=== PATIENT | male | born 1990 | race Two or more races ===

== ENCOUNTER 2018-06-13 02:07 | Emergency (ER) | payer SELFPAY ==
--- NOTE | 2018-06-13 02:25 | EDM.PDOCBH ---
ED HPI GENERAL MEDICAL PROBLEM - General Chief Complaint: Behavioral/Psych Stated Complaint: MEDICAL VIA [facility] Time Seen by Provider: 06/13/18 02:20 Source of Information: Reports: EMS History Limitations: Reports: Other (no history, patient non-verbal) - History of Present Illness INITIAL COMMENTS - FREE TEXT/NARRATIVE: 27 yo male sent in to the ER by police after they picked him up for unknown reasons and started banging is face/head on the back cage of the squad car. EMS transported for the police who did not accompany him. Apparently when he is medically stable he is free to leave as no charges were filed. Has a psych history and lives in the [facility]. Onset: Today Onset Date: 06/13/18 (Or late 06/12) Duration: Other (unknown) Location: Reports: Generalized Severity: Severe (unresponsive here in the ER with stable vitals) Improves with: Reports: None Worsens with: Reports: None Context: Reports: Other (unknown) Associated Symptoms: Reports: Other (decreased LOC, earlier was combative) Treatments SENIOR LABEL SPECIALIST: Reports: Other (see below) (none) - Related Data Allergies Allergy/AdvReac Type Severity Reaction Status Date / Time Unable to Assess Allergy Unverified 06/13/18 04:50 Home Meds: Home Meds . [Unable to Verify Home Med List] 06/13/18 [History] ED ROS GENERAL - Review of Systems Review Of Systems: Unable To Obtain ED EXAM, BEHAVIORAL HEALTH - Physical Exam Exam: See Below Exam Limited By: Other (patient non-verbal) General Appearance: No Apparent Distress, Obtunded Eye Exam: Bilateral Eye: Other (pupils constricted) Ears: Normal External Exam, Normal Canal Nose: Normal Inspection, Normal Mucosa, No Blood Throat/Mouth: Normal Lips, No Airway Compromise Head: Facial Swelling (L eyebrow area. Some superficial facial abrasions. ) Neck: Normal Inspection Respiratory/Chest: No Respiratory Distress, Lungs Clear, Normal Breath Sounds, No Accessory Muscle Use Cardiovascular: Regular Rate, Rhythm, No Edema GI/Abdominal: Normal Bowel Sounds, Soft, Non-Tender, Other (striae) Extremities: Normal Inspection, Normal Range of Motion, Non-Tender, No Pedal Edema Neurological: Slow Response to Commands, Withdraws to Pain Psychiatric: Non-Communicative Skin Exam: Warm, Dry, Intact, Normal color, No rash, Other (many striae) COURSE, BEHAVIORAL HEALTH COMP - Course Vital Signs: Last Vital Signs Temp 36.9 C 06/13/18 02:44 Pulse 95 06/13/18 02:44 Resp 15 06/13/18 02:44 BP 102/56 L 06/13/18 02:44 Pulse Ox 93 L 06/13/18 02:44 Orders, Labs, Meds: Laboratory Tests 06/13/18 06/13/18 Range/Units 02:10 02:10 Urine Opiates Screen Negative (NEGATIVE) Ur Oxycodone Screen Negative (NEGATIVE) Urine Methadone Screen Negative (NEGATIVE) Ur Propoxyphene Screen Negative (NEGATIVE) Ur Barbiturates Screen Negative (NEGATIVE) Ur Tricyclics Screen Negative (NEGATIVE) Ur Phencyclidine Scrn Negative (NEGATIVE) Ur Amphetamine Screen Negative (NEGATIVE) U Methamphetamines Scrn Negative (NEGATIVE) Urine MDMA Screen Negative (NEGATIVE) U Benzodiazepines Scrn Negative (NEGATIVE) U Cocaine Metab Screen Negative (NEGATIVE) U Marijuana (THC) Screen Negative (NEGATIVE) Ethyl Alcohol 270 mg/dL Departure - Departure Time of Disposition: 06:20 Disposition: Home, Self-Care 01 Condition: Good Clinical Impression: Alcohol intoxication Qualifiers: Complication of substance-induced condition: with unspecified complication Qualified Code(s): F10.929 - Alcohol use, unspecified with intoxication, unspecified - Discharge Information *PRESCRIPTION DRUG MONITORING PROGRAM REVIEWED*: Not Applicable *COPY OF PRESCRIPTION DRUG MONITORING REPORT IN PATIENT ELHAM: Not Applicable Instructions: Alcohol Intoxication, [id number] Referrals: PCP,None [Primary Care Provider] - Forms: ED Department Discharge Additional Instructions: No driving this morning. Avoid drinking so much in the future. F/U with your doctor as needed.
== END 2018-06-13 06:36 | disposition home or self-care (01) ==
LOC: JP.ED 02:07
DX: F10.129 Alcohol abuse with intoxication, unspecified (principal); Y90.8 Blood alcohol level of 240 mg/100 ml or more
CPT/HCPCS: 36415; 80305; 99282; 99284; G0480

== ENCOUNTER 2020-04-02 19:38 | Emergency (ER) | payer SELFPAY ==
[2020-04-02] MEDS ORDERED: Ibuprofen 600 MG Tab PO ONE (20:26)
--- NOTE | 2020-04-02 20:31 | EDM.PDOC ---
ED HPI GENERAL MEDICAL PROBLEM - General Chief Complaint: Lower Extremity Injury/Pain Stated Complaint: fell hurt right foot Time Seen by Provider: 04/02/20 20:19 Source of Information: Reports: Patient, Significant Other History Limitations: Reports: No Limitations - History of Present Illness Onset Date: 03/30/20 Duration: Getting Worse Location: Reports: Lower Extremity, Right Quality: Reports: Sharp Improves with: Reports: Medication (tylenol) Worsens with: Reports: Movement Context: Reports: Trauma Associated Symptoms: Reports: No Other Symptoms Treatments DIE REAMER: Reports: Acetaminophen Right Foot Pain Score (Numeric/FACES): 10 - Related Data Allergies Allergy/AdvReac Type Severity Reaction Status Date / Time No Known Allergies Allergy Verified 04/02/20 20:05 Home Meds: Home Meds NK [No Known Home Meds] 04/02/20 [History] Past Medical History Gastrointestinal History: Reports: GERD Musculoskeletal History: Reports: Fracture Psychiatric History: Reports: Addiction - Past Surgical History Musculoskeletal Surgical History: Reports: Other (See Below) Other Musculoskeletal Surgeries/Procedures:: bunion removed, surgery on r foot Social & Family History - Tobacco Use Smoking Status *Q: Current Every Day Smoker Years of Tobacco use: 15 Packs/Tins Daily: 0.3 - Recreational Drug Use Recreational Drug Use: No Review of Systems - Review of Systems Review Of Systems: See Below Constitutional: Reports: No Symptoms Eyes: Reports: No Symptoms Ears: Reports: No Symptoms Mouth/Throat: Reports: No Symptoms Respiratory: Reports: No Symptoms Cardiovascular: Reports: No Symptoms Genitourinary: Reports: No Symptoms Musculoskeletal: Reports: Leg Pain, Foot Pain Skin: Reports: No Symptoms Neurological: Reports: Numbness, Other (Medial side of right foot, but this preexisted the injury. ) ED EXAM, GENERAL - Physical Exam Exam: See Below Exam Limited By: No Limitations General Appearance: Alert, Moderate Distress Respiratory/Chest: No Respiratory Distress Cardiovascular: Normal Peripheral Pulses Back Exam: Normal Inspection Extremities: Redness (Swelling of right foot. There is a well-healed linear scar at the base of the first first metatarsal from bunion surgery. metatarsal from bunion surgery. Patient has extreme pain on palpation of the entire dorsum ofpatient has extreme pain on palpation of the entire dorsum of his right foot ohis right foot. Also pain on palpation of his right proximal . Also pain on palpation of his right proximal fibula fibulaof right foot. There is a well-healed linear scar at the base of the) Course - Vital Signs Last Recorded V/S: Last Vital Signs Temp 36.1 C 04/02/20 20:09 Pulse 96 04/02/20 20:09 Resp 16 04/02/20 20:09 BP 160/103 H 04/02/20 20:09 Pulse Ox 94 L 04/02/20 20:09 - Orders/Labs/Meds Orders: Active Orders 24 hr Category Date Time Status Foot Comp Min 3V Rt [CR] Stat Exams 04/02/20 20:25 Taken Tibia Fibula Rt [CR] Stat Exams 04/02/20 20:25 Taken Meds: Medications Discontinued Medications Generic Name Dose Route Start Last Admin Trade Name Jovita PRN Reason Stop Dose Admin Ibuprofen 600 mg 04/02/20 20:26 04/02/20 20:32 Motrin PO 04/02/20 20:27 600 mg ONETIME ONE Administration Oxycodone/Acetaminophen 1 tab 04/02/20 20:58 04/02/20 21:06 Percocet 325-5 Mg PO 04/02/20 20:59 1 tab ONETIME ONE Administration Departure - Departure Time of Disposition: 21:11 Disposition: Home, Self-Care 01 Clinical Impression: Metatarsal bone fracture - Discharge Information Referrals: PCP,None [Primary Care Provider] - Forms: ED Department Discharge Additional Instructions: Keep R foot elevated and iced as much as possible. See enrichment teacher FELICIA. Sent home with Percocet #6. Sepsis Event Note (ED) - Evaluation Sepsis Screening Result: No Definite Risk - Focused Exam Vital Signs: Vital Signs Temp Pulse Resp BP Pulse Ox 04/02/20 20:09 36.1 C 96 16 160/103 H 94 L 04/02/20 20:02 36.1 C 96 16 160/103 H 94 L - My Orders Last 24 Hours: My Active Orders 04/02/20 20:25 Foot Comp Min 3V Rt [CR] Stat Tibia Fibula Rt [CR] Stat - Assessment/Plan Last 24 Hours: My Active Orders 04/02/20 20:25 Foot Comp Min 3V Rt [CR] Stat Tibia Fibula Rt [CR] Stat
[2020-04-02] MEDS ORDERED: Acetaminophen/oxyCODONE 325-5 MG Tab PO ONE (20:58)
--- NOTE | 2020-04-03 09:06 | CR ---
Foot Comp Min 3V Rt, CLINICAL HISTORY: Foot pain, fall FINDINGS: There is a comminuted fracture at the base of the first metatarsal. There is articular surface involvement. Patient has had previous osteotomy at the first proximal phalanx. 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 No soft tissue abnormality is seen. Impression: Negative
== END 2020-04-02 21:28 | disposition home or self-care (01) ==
LOC: JP.ED 19:38
DX: S92.311A Displaced fracture of first metatarsal bone, right foot, initial encounter for closed fracture (principal); F17.210 Nicotine dependence, cigarettes, uncomplicated; W19.XXXA Unspecified fall, initial encounter
CPT/HCPCS: 73590; 73630; 99283; A9270

== ENCOUNTER 2020-05-01 19:16 | Emergency (ER) | payer MEDICAID ==
--- NOTE | 2020-05-01 21:04 | EDM.PDOC ---
ED HPI GENERAL MEDICAL PROBLEM - General Chief Complaint: Lower Extremity Injury/Pain Stated Complaint: R FOOT INJURY Time Seen by Provider: 05/01/20 19:50 Source of Information: Reports: Patient, Family History Limitations: Reports: Intoxication - History of Present Illness INITIAL COMMENTS - FREE TEXT/NARRATIVE: 29 year old male with foot pain for the past month. He does not have a new injury, he is supposed to be wearing a walking boot but he "forgot it because he is in so much pain". Claims he is taking ibuprofen but it is not enough. He is intoxicated, also already on Suboxone. Onset: Unknown/Unsure Duration: Week(s): (At least 4 to 5 weeks) Associated Symptoms: Denies: Chest Pain, Fever/Chills, Nausea/Vomiting, Shortness of Breath Right Foot Pain Score (Numeric/FACES): 8 - Related Data Allergies Allergy/AdvReac Type Severity Reaction Status Date / Time No Known Allergies Allergy Verified 05/01/20 19:32 Home Meds: Home Meds Buprenorphine HCl/Naloxone HCl [Buprenorp-Nalox 8-2 mg Sl Film] 1 each SL TID 05/01/20 [History] Past Medical History Cardiovascular History: Reports: Heart Murmur Gastrointestinal History: Reports: GERD Musculoskeletal History: Reports: Fracture Psychiatric History: Reports: Addiction - Past Surgical History Musculoskeletal Surgical History: Reports: Other (See Below) Other Musculoskeletal Surgeries/Procedures:: bunion removed, surgery on r foot Social & Family History - Tobacco Use Smoking Status *Q: Current Every Day Smoker Years of Tobacco use: 12 Packs/Tins Daily: 1 - Caffeine Use Caffeine Use: Reports: Energy Drinks - Alcohol Use Days Per Week of Alcohol Use: 7 Number of Drinks Per Day: 16 Total Drinks Per Week: 112 Date of Last Drink: 05/01/20 Time of Last Drink: 15:00 - Recreational Drug Use Recreational Drug Use: No Review of Systems - Review of Systems Review Of Systems: See Below Respiratory: Denies: Shortness of Breath Cardiovascular: Denies: Chest Pain GI/Abdominal: Denies: Abdominal Pain Musculoskeletal: Reports: Other (Foot pain) Skin: Denies: Bruising ED EXAM, GENERAL - Physical Exam Exam: See Below Exam Limited By: No Limitations General Appearance: Alert, No Apparent Distress, Other (Patient is obviously intoxicated) Respiratory/Chest: No Respiratory Distress Extremities: Other (Exam of the right foot reveals no deformity, bruising or swelling. He reacts with pain with palpation of the inner aspect of the right foot) Neurological: Alert, Oriented Psychiatric: Other (Intoxicated) Skin Exam: Warm, Dry Course - Vital Signs Last Recorded V/S: Last Vital Signs Temp 96.9 F 05/01/20 19:43 Pulse 76 05/01/20 19:43 Resp 15 05/01/20 19:43 BP 152/106 H 05/01/20 19:43 Pulse Ox 99 05/01/20 19:43 - Orders/Labs/Meds Orders: Active Orders 24 hr Category Date Time Status Foot Comp Min 3V Rt [CR] Stat Exams 05/01/20 19:56 Taken - Re-Assessments/Exams Free Text/Narrative Re-Assessment/Exam: 05/01/20 23:19 An x-ray was done that shows good callus formation around his fracture, appears to be healing nicely. I explained this to the patient and encouraged him to continue wearing his walking boot. He kept asking for something for pain and when I told him ibuprofen should be enough and I would not be comfortable adding narcotic medications to his already intoxicated state and his Suboxone treatment. He then asked me what I was going to do about his chronic alcohol abuse. I offered him detox but he refused, said he wanted some "Valium". I told him he could go to detox or follow-up with his primary provider and he left without instructions or signing. Departure - Departure Time of Disposition: 20:47 Disposition: Home, Self-Care 01 Clinical Impression: Foot pain, right, Alcohol abuse - Discharge Information Referrals: PCP,None [Primary Care Provider] - Forms: ED Department Discharge Care Plan Goals: Continue current treatment plan, no alcohol. Sepsis Event Note (ED) - Evaluation Sepsis Screening Result: No Definite Risk - Focused Exam Vital Signs: Vital Signs Temp Pulse Resp BP Pulse Ox 05/01/20 19:43 96.9 F 76 15 152/106 H 99 05/01/20 19:40 96.9 F 76 15 152/106 H 99 - My Orders Last 24 Hours: My Active Orders 05/01/20 19:56 Foot Comp Min 3V Rt [CR] Stat - Assessment/Plan Last 24 Hours: My Active Orders 05/01/20 19:56 Foot Comp Min 3V Rt [CR] Stat
--- NOTE | 2020-05-02 08:52 | CR ---
Foot Comp Min 3V Rt CLINICAL HISTORY: Recent fracture, continued pain FINDINGS: There is a fixation staple in the first proximal phalanx. There is deformity of the first metatarsal due to fracture through the base. There is callus formation. There is some deformity of the distal first metatarsal which may be from prior surgery IMPRESSION: Healing comminuted fracture through the base of the first metatarsal with moderate callus formation Deformity of the distal aspect of the first metatarsal is likely postsurgical Previous surgery with the fixation at the first proximal phalanx
== END 2020-05-01 20:47 | disposition home or self-care (01) ==
LOC: JP.ED 19:16
DX: M79.671 Pain in right foot (principal); F10.10 Alcohol abuse, uncomplicated; F11.129 Opioid abuse with intoxication, unspecified; F17.210 Nicotine dependence, cigarettes, uncomplicated
CPT/HCPCS: 73630-26-RT; 73630-RT; 99282; 99284-25

== ENCOUNTER 2020-05-04 02:47 | Emergency (ER) | payer MEDICAID ==
--- NOTE | 2020-05-04 03:02 | EDM.PDOCBH ---
ED HPI GENERAL MEDICAL PROBLEM - General Chief Complaint: Drug or Alcohol Abuse Stated Complaint: MEDICAL VIA [facility] Time Seen by Provider: 05/04/20 02:50 Source of Information: Reports: Patient, EMS, Family History Limitations: Reports: No Limitations - History of Present Illness INITIAL COMMENTS - FREE TEXT/NARRATIVE: 29-year-old French male who is been drinking daily, tonight felt his hands were numb, felt shaky, and just felt awful so called the ambulance to come in. I just saw him here 3 days ago when he was complaining about foot pain and wanted pain medication and Valium for his alcohol. He refused detox at that time, he continued to drink over the last 3 days. No shortness of breath. Some nausea, no vomiting. Just does not feel well. Onset: Unknown/Unsure Associated Symptoms: Reports: Malaise. Denies: Confusion, Chest Pain, Cough, Nausea/Vomiting, Shortness of Breath denies pain Pain Score (Numeric/FACES): 0 - Related Data Allergies Allergy/AdvReac Type Severity Reaction Status Date / Time No Known Allergies Allergy Verified 05/04/20 02:53 Home Meds: Home Meds Buprenorphine HCl/Naloxone HCl [Buprenorp-Nalox 8-2 mg Sl Film] 1 each SL TID 05/01/20 [History] Past Medical History Cardiovascular History: Reports: Heart Murmur Gastrointestinal History: Reports: GERD Musculoskeletal History: Reports: Fracture Psychiatric History: Reports: Addiction - Past Surgical History Musculoskeletal Surgical History: Reports: Other (See Below) Other Musculoskeletal Surgeries/Procedures:: bunion removed, surgery on r foot Social & Family History - Caffeine Use Caffeine Use: Reports: Energy Drinks ED ROS GENERAL - Review of Systems Review Of Systems: See Below Constitutional: Reports: Malaise. Denies: Fever, Chills HEENT: Reports: No Symptoms Respiratory: Denies: Shortness of Breath Cardiovascular: Denies: Chest Pain GI/Abdominal: Reports: Nausea. Denies: Abdominal Pain, Vomiting Musculoskeletal: Reports: Other (foot pain) Skin: Reports: Pallor, Diaphoresis ED EXAM, BEHAVIORAL HEALTH - Physical Exam Exam: See Below Exam Limited By: No Limitations General Appearance: Alert, No Apparent Distress Eye Exam: Bilateral Eye: Normal Inspection Head: Atraumatic Neck: Supple, Non-Tender Respiratory/Chest: Lungs Clear Cardiovascular: Regular Rate, Rhythm. No: Tachycardia GI/Abdominal: Normal Bowel Sounds, Non-Tender Neurological: Alert, Oriented x 3 Psychiatric: Alert, Normal Affect Skin Exam: Warm, Dry COURSE, BEHAVIORAL HEALTH COMP - Course Vital Signs: Last Vital Signs Temp 99.3 F 05/04/20 03:00 Pulse 100 05/04/20 03:00 Resp 17 05/04/20 03:00 BP 134/82 05/04/20 03:00 Pulse Ox 95 05/04/20 03:00 Orders, Labs, Meds: Laboratory Tests 05/04/20 05/04/20 05/04/20 Range/Units 03:03 03:03 03:03 WBC 9.6 (4.5-11.0) K/uL RBC 4.71 (4.30-5.90) M/uL Hgb 13.9 (12.0-15.0) g/dL Hct 40.8 (40.0-54.0) % MCV 87 (80-98) fL MCH 30 (27-31) pg MCHC 34 (32-36) % Plt Count 252 (150-400) K/uL Neut % (Auto) 75 H (36-66) % Lymph % (Auto) 20 L (24-44) % [place] % (Auto) 4 (2-6) % Eos % (Auto) 0 L (2-4) % Baso % (Auto) 1 (0-1) % Sodium 137 L (140-148) mmol/L Potassium 3.2 L (3.6-5.2) mmol/L Chloride 98 L (100-108) mmol/L Carbon Dioxide 22 (21-32) mmol/L Anion Gap 20.2 H (5.0-14.0) mmol/L BUN 11 (7-18) mg/dL Creatinine 1.0 (0.8-1.3) mg/dL Est Cr Clr Drug Dosing 108.01 mL/min Estimated GFR (MDRD) > 60 (>60) Glucose 104 (74-106) mg/dL Calcium 7.9 L (8.5-10.1) mg/dL Total Bilirubin 0.8 (0.2-1.0) mg/dL AST 63 H (15-37) U/L ALT 48 (12-78) U/L Alkaline Phosphatase 81 (46-116) U/L Total Protein 7.1 (6.4-8.2) g/dL Albumin 3.8 (3.4-5.0) g/dL Globulin 3.3 (2.3-3.5) g/dL Albumin/Globulin Ratio 1.2 (1.2-2.2) Lipase 290 (73-393) U/L Urine Opiates Screen (NEGATIVE) Ur Oxycodone Screen (NEGATIVE) Urine Methadone Screen (NEGATIVE) Ur Propoxyphene Screen (NEGATIVE) Ur Barbiturates Screen (NEGATIVE) Ur Tricyclics Screen (NEGATIVE) Ur Phencyclidine Scrn (NEGATIVE) Ur Amphetamine Screen (NEGATIVE) U Methamphetamines Scrn (NEGATIVE) Urine MDMA Screen (NEGATIVE) U Benzodiazepines Scrn (NEGATIVE) U Cocaine Metab Screen (NEGATIVE) U Marijuana (THC) Screen (NEGATIVE) Ethyl Alcohol 138 mg/dL 05/04/20 Range/Units 03:14 WBC (4.5-11.0) K/uL RBC (4.30-5.90) M/uL Hgb (12.0-15.0) g/dL Hct (40.0-54.0) % MCV (80-98) fL MCH (27-31) pg MCHC (32-36) % Plt Count (150-400) K/uL Neut % (Auto) (36-66) % Lymph % (Auto) (24-44) % [place] % (Auto) (2-6) % Eos % (Auto) (2-4) % Baso % (Auto) (0-1) % Sodium (140-148) mmol/L Potassium (3.6-5.2) mmol/L Chloride (100-108) mmol/L Carbon Dioxide (21-32) mmol/L Anion Gap (5.0-14.0) mmol/L BUN (7-18) mg/dL Creatinine (0.8-1.3) mg/dL Est Cr Clr Drug Dosing mL/min Estimated GFR (MDRD) (>60) Glucose (74-106) mg/dL Calcium (8.5-10.1) mg/dL Total Bilirubin (0.2-1.0) mg/dL AST (15-37) U/L ALT (12-78) U/L Alkaline Phosphatase (46-116) U/L Total Protein (6.4-8.2) g/dL Albumin (3.4-5.0) g/dL Globulin (2.3-3.5) g/dL Albumin/Globulin Ratio (1.2-2.2) Lipase (73-393) U/L Urine Opiates Screen Negative (NEGATIVE) Ur Oxycodone Screen Negative (NEGATIVE) Urine Methadone Screen Negative (NEGATIVE) Ur Propoxyphene Screen Negative (NEGATIVE) Ur Barbiturates Screen Negative (NEGATIVE) Ur Tricyclics Screen Negative (NEGATIVE) Ur Phencyclidine Scrn Negative (NEGATIVE) Ur Amphetamine Screen Negative (NEGATIVE) U Methamphetamines Scrn Negative (NEGATIVE) Urine MDMA Screen Negative (NEGATIVE) U Benzodiazepines Scrn Negative (NEGATIVE) U Cocaine Metab Screen Negative (NEGATIVE) U Marijuana (THC) Screen Negative (NEGATIVE) Ethyl Alcohol mg/dL Medications Discontinued Medications Generic Name Dose Route Start Last Admin Trade Name Freq PRN Reason Stop Dose Admin Al Hydroxide/Mg Hydroxide 30 ml 05/04/20 03:20 05/04/20 03:23 Mag-Al Plus PO 05/04/20 03:21 30 ml ONETIME ONE Administration Re-Assessment/Re-Exam: labs reassuring, ETOH .128. Urine screen neg, patient admits not taking suboxone the last two weeks. Refused detox. Departure - Departure Time of Disposition: 03:33 Disposition: Home, Self-Care 01 Clinical Impression: Alcohol abuse - Discharge Information Instructions: Alcohol Intoxication, [id number] Referrals: PCP,None [Primary Care Provider] - Forms: ED Department Discharge Care Plan Goals: It is strongly recommended that you stop using alcohol and consider inpatient detox if necessary. Sepsis Event Note (ED) - Evaluation Sepsis Screening Result: No Definite Risk - Focused Exam Vital Signs: Vital Signs Temp Pulse Resp BP Pulse Ox 05/04/20 03:00 99.3 F 100 17 134/82 95 05/04/20 02:53 99.3 F 100 17 134/82 95
[2020-05-04] MEDS ORDERED: Aluminum Hydroxide/Magnesium Hydroxide/Simethicone Susp 30 ML Cup PO ONE (03:20)
== END 2020-05-04 03:37 | disposition home or self-care (01) ==
LOC: JP.ED 02:47
DX: F10.10 Alcohol abuse, uncomplicated (principal); Y90.6 Blood alcohol level of 120-199 mg/100 ml
CPT/HCPCS: 36415; 80053; 80305; 80307; 83690; 85025; 99284; A9270; 99282

== ENCOUNTER 2020-08-04 19:29 | Emergency (ER) | payer MEDICAID ==
--- NOTE | 2020-08-04 20:54 | EDM.PDOC ---
ED HPI GENERAL MEDICAL PROBLEM - General Chief Complaint: Gastrointestinal Problem Stated Complaint: NUMBNESS, CHEST PAIN Time Seen by Provider: 08/04/20 20:30 Source of Information: Reports: Patient History Limitations: Reports: No Limitations - History of Present Illness INITIAL COMMENTS - FREE TEXT/NARRATIVE: 29-year-old male, acting very anxious complaining of upper abdominal and chest discomfort and numb hands for the past month. No fevers or chills. Claims he has not had any alcohol for the past 2 months but he looks like he is going through withdrawal, mild tachycardia, tremor and namita complexion. I have seen this patient in the past and he is usually not truthful with his history. Onset: Unknown/Unsure Associated Symptoms: Reports: Chest Pain, Loss of Appetite, Malaise, Nausea/Vomiting, Other (Paresthesias of his hands) - Related Data Allergies Allergy/AdvReac Type Severity Reaction Status Date / Time No Known Allergies Allergy Verified 08/04/20 20:36 Home Meds: Home Meds Buprenorphine HCl/Naloxone HCl [Buprenorp-Nalox 8-2 mg Sl Film] 1 each SL TID 05/01/20 [History] Past Medical History Cardiovascular History: Reports: Heart Murmur Gastrointestinal History: Reports: GERD Genitourinary History: Reports: None Musculoskeletal History: Reports: Fracture Psychiatric History: Reports: Addiction Other Psychiatric History: ETOH and Pain medication - Past Surgical History Musculoskeletal Surgical History: Reports: Other (See Below) Other Musculoskeletal Surgeries/Procedures:: bunion removed, surgery on r foot Social & Family History - Family History Family Medical History: No Pertinent Family History - Tobacco Use Tobacco Use Status *Q: Current Every Day Tobacco User Years of Tobacco use: 15 Packs/Tins Daily: 0.5 - Caffeine Use Caffeine Use: Reports: Soda Other Caffeine Use: drinks redbull last 1 week. - Recreational Drug Use Recreational Drug Use: No Other Recreational Drug Type: on suboxone clinic ED ROS GENERAL - Review of Systems Review Of Systems: See Below Constitutional: Reports: Malaise. Denies: Fever, Chills Respiratory: Denies: Shortness of Breath Cardiovascular: Reports: Chest Pain GI/Abdominal: Reports: Abdominal Pain, Nausea Skin: Denies: Cyanosis, Bruising Neurological: Reports: Paresthesia. Denies: Headache Psychiatric: Reports: Anxiety ED EXAM, GI/ABD - Physical Exam Exam: See Below Exam Limited By: No Limitations General Appearance: Alert, Anxious Eyes: Bilateral: Normal Appearance Head: Atraumatic Respiratory/Chest: Lungs Clear Cardiovascular: Regular Rate, Rhythm, Tachycardia GI/Abdominal Exam: Tender (Patient does react with tenderness to palpation across the upper abdomen) Extremities: No: Pedal Edema Neurological: Alert, Oriented Psychiatric: Anxious Skin Exam: Warm, Dry Course - Vital Signs Last Recorded V/S: Last Vital Signs Temp 97.4 F 08/04/20 20:25 Pulse 104 H 08/04/20 20:25 Resp 20 08/04/20 20:25 BP 160/94 H 08/04/20 20:25 Pulse Ox 96 08/04/20 20:25 - Orders/Labs/Meds Labs: Laboratory Tests 08/04/20 08/04/20 08/04/20 Range/Units 21:11 21:11 21:11 WBC 8.5 (4.5-11.0) K/uL RBC 4.56 (4.30-5.90) M/uL Hgb 13.2 (12.0-15.0) g/dL Hct 38.8 L (40.0-54.0) % MCV 85 (80-98) fL MCH 29 (27-31) pg MCHC 34 (32-36) % Plt Count 204 (150-400) K/uL Neut % (Auto) 89 H (36-66) % Lymph % (Auto) 6 L (24-44) % Glasscock % (Auto) 4 (2-6) % Eos % (Auto) 0 L (2-4) % Baso % (Auto) 1 (0-1) % Sodium 140 (140-148) mmol/L Potassium 3.3 L (3.6-5.2) mmol/L Chloride 97 L (100-108) mmol/L Carbon Dioxide 27 (21-32) mmol/L Anion Gap 19.3 H (5.0-14.0) mmol/L BUN 9 (7-18) mg/dL Creatinine 0.8 (0.8-1.3) mg/dL Est Cr Clr Drug Dosing 135.02 mL/min Estimated GFR (MDRD) > 60 (>60) Glucose 106 (74-106) mg/dL Calcium 8.1 L (8.5-10.1) mg/dL Total Bilirubin 1.1 H (0.2-1.0) mg/dL AST 143 H D (15-37) U/L ALT 120 H (12-78) U/L Alkaline Phosphatase 71 (46-116) U/L Total Protein 7.5 (6.4-8.2) g/dL Albumin 4.1 (3.4-5.0) g/dL Globulin 3.4 (2.3-3.5) g/dL Albumin/Globulin Ratio 1.2 (1.2-2.2) Lipase (73-393) U/L Urine Opiates Screen (NEGATIVE) Ur Oxycodone Screen (NEGATIVE) Urine Methadone Screen (NEGATIVE) Ur Propoxyphene Screen (NEGATIVE) Ur Barbiturates Screen (NEGATIVE) Ur Tricyclics Screen (NEGATIVE) Ur Phencyclidine Scrn (NEGATIVE) Ur Amphetamine Screen (NEGATIVE) U Methamphetamines Scrn (NEGATIVE) Urine MDMA Screen (NEGATIVE) U Benzodiazepines Scrn (NEGATIVE) U Cocaine Metab Screen (NEGATIVE) U Marijuana (THC) Screen (NEGATIVE) Ethyl Alcohol 45 mg/dL 08/04/20 08/04/20 Range/Units 21:11 21:41 WBC (4.5-11.0) K/uL RBC (4.30-5.90) M/uL Hgb (12.0-15.0) g/dL Hct (40.0-54.0) % MCV (80-98) fL MCH (27-31) pg MCHC (32-36) % Plt Count (150-400) K/uL Neut % (Auto) (36-66) % Lymph % (Auto) (24-44) % Glasscock % (Auto) (2-6) % Eos % (Auto) (2-4) % Baso % (Auto) (0-1) % Sodium (140-148) mmol/L Potassium (3.6-5.2) mmol/L Chloride (100-108) mmol/L Carbon Dioxide (21-32) mmol/L Anion Gap (5.0-14.0) mmol/L BUN (7-18) mg/dL Creatinine (0.8-1.3) mg/dL Est Cr Clr Drug Dosing mL/min Estimated GFR (MDRD) (>60) Glucose (74-106) mg/dL Calcium (8.5-10.1) mg/dL Total Bilirubin (0.2-1.0) mg/dL AST (15-37) U/L ALT (12-78) U/L Alkaline Phosphatase (46-116) U/L Total Protein (6.4-8.2) g/dL Albumin (3.4-5.0) g/dL Globulin (2.3-3.5) g/dL Albumin/Globulin Ratio (1.2-2.2) Lipase 495 H (73-393) U/L Urine Opiates Screen Negative (NEGATIVE) Ur Oxycodone Screen Negative (NEGATIVE) Urine Methadone Screen Negative (NEGATIVE) Ur Propoxyphene Screen Negative (NEGATIVE) Ur Barbiturates Screen Negative (NEGATIVE) Ur Tricyclics Screen Negative (NEGATIVE) Ur Phencyclidine Scrn Negative (NEGATIVE) Ur Amphetamine Screen Negative (NEGATIVE) U Methamphetamines Scrn Negative (NEGATIVE) Urine MDMA Screen Negative (NEGATIVE) U Benzodiazepines Scrn Negative (NEGATIVE) U Cocaine Metab Screen Negative (NEGATIVE) U Marijuana (THC) Screen Negative (NEGATIVE) Ethyl Alcohol mg/dL Meds: Medications Discontinued Medications Generic Name Dose Route Start Last Admin Trade Name Freq PRN Reason Stop Dose Admin Multivitamins/Minerals 10 ml/ 1,017.2 mls @ 1,000 mls/hr 08/04/20 22:00 Thiamine HCl 100 mg/ Folic IV Acid 1 mg/ Magnesium Sulfate 3 ASDIRECTED PAMELA gm/ Sodium Chloride - Re-Assessments/Exams Free Text/Narrative Re-Assessment/Exam: 08/04/20 23:54 CBC CMP EtOH and lipase were obtained. Liver enzymes returned elevated, and blood alcohol was 0.045. I confronted the patient about this and told him I thought he was withdrawing could use time in the detox center. I also planned on giving him a banana bag, but when nursing went into his room to start the IV he had left AMA. Departure - Departure Time of Disposition: 22:02 Disposition: Against Medical Advice 07 Clinical Impression: Alcoholism - Discharge Information Referrals: PCP,None [Primary Care Provider] - Forms: ED Department Discharge Care Plan Goals: Discussed detox with the patient and ordered a banana bag for fluid replenishment and vitamins. However when the nurse returned to the room to start the IV he got up and left and refused to be seen or treated any further. Sepsis Event Note (ED) - Evaluation Sepsis Screening Result: No Definite Risk - Focused Exam Vital Signs: Vital Signs Temp Pulse Resp BP Pulse Ox 08/04/20 20:25 97.4 F 104 H 20 160/94 H 96
[2020-08-04] MEDS ORDERED: MVI, Adult with Vitamin K 10 ML, Thiamine 100 MG, Folic Acid 1 MG, Magnesium Sulfate 3 ... IV SCH ×5 (22:00)
== END 2020-08-04 21:55 | disposition left against medical advice (07) ==
LOC: JP.ED 19:29
DX: F10.20 Alcohol dependence, uncomplicated (principal); Y90.2 Blood alcohol level of 40-59 mg/100 ml; F17.210 Nicotine dependence, cigarettes, uncomplicated
CPT/HCPCS: 36415; 80053; 80305-QW; 80307; 83690; 85025; 99283; 99284

== ENCOUNTER 2020-10-19 18:17 | Emergency (ER) | payer BC, MEDICAID ==
--- NOTE | 2020-10-19 18:50 | EDM.PDOC ---
ED HPI GENERAL MEDICAL PROBLEM - General Chief Complaint: Respiratory Problem Stated Complaint: PAIN WHILE BREATHING Time Seen by Provider: 10/19/20 18:44 Source of Information: Reports: Patient History Limitations: Reports: No Limitations - History of Present Illness INITIAL COMMENTS - FREE TEXT/NARRATIVE: Izaiah is a 30-year-old male presenting to the ED for evaluation of increasing shortness of breath and chest pain with respiration. Patient symptoms started yesterday morning. He denies any fever, chills, nausea or vomiting, diaphoresis, hemoptysis, neck or arm pain. The patient is a smoker and reports that last couple of days he has smoked more than usual at about a pack per day. He denies having any cough. Denies any headache and loss of taste or smell. - Related Data Allergies Allergy/AdvReac Type Severity Reaction Status Date / Time No Known Allergies Allergy Verified 10/19/20 18:32 Home Meds: Home Meds NK [No Known Home Meds] 10/19/20 [History] Past Medical History Cardiovascular History: Reports: Heart Murmur Gastrointestinal History: Reports: GERD Genitourinary History: Reports: None Musculoskeletal History: Reports: Fracture Psychiatric History: Reports: Addiction Other Psychiatric History: ETOH and Pain medication - Past Surgical History Musculoskeletal Surgical History: Reports: Other (See Below) Other Musculoskeletal Surgeries/Procedures:: bunion removed, surgery on r foot Social & Family History - Family History Family Medical History: No Pertinent Family History - Tobacco Use Tobacco Use Status *Q: Current Every Day Tobacco User Years of Tobacco use: 15 Packs/Tins Daily: 1 - Caffeine Use Caffeine Use: Reports: Soda Other Caffeine Use: drinks redbull last 1 week. ED ROS GENERAL - Review of Systems Review Of Systems: See Below Constitutional: Reports: No Symptoms HEENT: Reports: No Symptoms Respiratory: Reports: Shortness of Breath, Pleuritic Chest Pain Cardiovascular: Reports: Chest Pain Endocrine: Reports: No Symptoms GI/Abdominal: Reports: No Symptoms : Reports: No Symptoms Musculoskeletal: Reports: No Symptoms Skin: Reports: No Symptoms Neurological: Reports: No Symptoms Psychiatric: Reports: No Symptoms Hematologic/Lymphatic: Reports: No Symptoms Immunologic: Reports: No Symptoms ED EXAM, GENERAL - Physical Exam Exam: See Below Exam Limited By: No Limitations General Appearance: Alert, WD/WN, No Apparent Distress Eye Exam: Bilateral Eye: EOMI, PERRL Head: Atraumatic, Normocephalic Neck: Normal Inspection, Supple, Non-Tender Respiratory/Chest: No Respiratory Distress, No Accessory Muscle Use, Chest Non- Tender, Wheezing (Scant inspiratory wheezes) Cardiovascular: Normal Peripheral Pulses, Regular Rate, Rhythm, No Murmur Peripheral Pulses: 2+: Radial (L), Radial (R) GI/Abdominal: Normal Bowel Sounds, Soft, Non-Tender Back Exam: Normal Inspection, Full Range of Motion Extremities: Normal Inspection, Normal Range of Motion Neurological: Alert, Oriented, Normal Cognition, No Motor/Sensory Deficits Psychiatric: Normal Affect, Normal Mood Skin Exam: Warm, Dry Lymphatic: No Adenopathy Course - Vital Signs Last Recorded V/S: Last Vital Signs Temp 37.1 C 10/19/20 18:38 Pulse 61 10/19/20 18:38 Resp 16 10/19/20 18:38 BP 142/60 H 10/19/20 18:38 Pulse Ox 97 10/19/20 18:38 - Orders/Labs/Meds Orders: Active Orders 24 hr Category Date Time Status Chest 2V [CR] Stat Exams 10/19/20 18:44 Taken Labs: Laboratory Tests 10/19/20 10/19/20 Range/Units 18:59 18:59 WBC 3.9 L (4.5-11.0) K/uL RBC 4.61 (4.30-5.90) M/uL Hgb 13.7 (12.0-15.0) g/dL Hct 40.1 (40.0-54.0) % MCV 87 (80-98) fL MCH 30 (27-31) pg MCHC 34 (32-36) % Plt Count 293 (150-400) K/uL Neut % (Auto) 54 (36-66) % Lymph % (Auto) 34 (24-44) % [place]ress % (Auto) 9 H (2-6) % Eos % (Auto) 2 (2-4) % Baso % (Auto) 1 (0-1) % C-Reactive Protein 0.13 (0.0-0.3) mg/dL - Radiology Interpretation Free Text/Narrative:: Chest x-ray 2 view: Normal cardiac silhouette. Normal appearing lungs without infiltrates. No effusions. Normal rib structure. - Re-Assessments/Exams Free Text/Narrative Re-Assessment/Exam: 10/19/20 19:37 I reviewed the patient's x-rays and labs. This appears to be most likely pleurodynia secondary to a viral pleurisy. We will put patient on Toradol 10 mg 4 times daily for the next 5 days to calm down the inflammation. I did encourage patient to quit smoking, however, I do not believe that he will take my advice on this. Indications return to the ED were discussed that he was discharged in satisfactory condition. Departure - Departure Time of Disposition: 19:38 Disposition: Home, Self-Care 01 Clinical Impression: Pleurodynia, viral, Pleurisy, Tobacco abuse - Discharge Information *PRESCRIPTION DRUG MONITORING PROGRAM REVIEWED*: Not Applicable *COPY OF PRESCRIPTION DRUG MONITORING REPORT IN PATIENT [place]: Not Applicable Instructions: Pleurisy, [id number], Steps to Quit Smoking, [id number] Referrals: Celestina Wall MD [Primary Care Provider] - Forms: ED Department Discharge Care Plan Goals: Your pain appears to be arising from inflammation due to a viral infection in the lining around your lungs. This is called pleurisy. I am putting you on Toradol 10 mg 4 times a day for the next 5 days to reduce his inflammation. Make sure to take the medication with some food as not irritate your stomach. Would also highly encourage you to quit smoking to prevent any further damage to your lungs. I definitely would advocate against any vaping as this is associated with severe lung damage and lung transplants. Sepsis Event Note (ED) - Evaluation Sepsis Screening Result: No Definite Risk - Focused Exam Vital Signs: Vital Signs Temp Pulse Resp BP Pulse Ox 10/19/20 18:38 37.1 C 61 16 142/60 H 97 10/19/20 18:29 37.1 C 61 16 142/60 H 97 - Problem List & Annotations (1) Pleurisy SNOMED Code(s): 744009335 Code(s): R09.1 - PLEURISY Status: Acute Priority: Medium Current Visit: Yes (2) Pleurodynia, viral SNOMED Code(s): 85617281 Code(s): B33.0 - EPIDEMIC MYALGIA Status: Acute Priority: Medium Current Visit: Yes (3) Tobacco abuse SNOMED Code(s): 098025899 Code(s): Z72.0 - TOBACCO USE Status: Chronic Priority: Medium Current Visit: Yes - Problem List Review Problem List Initiated/Reviewed/Updated: Yes - My Orders Last 24 Hours: My Active Orders 10/19/20 18:44 Chest 2V [CR] Stat - Assessment/Plan Last 24 Hours: My Active Orders 10/19/20 18:44 Chest 2V [CR] Stat
--- NOTE | 2020-10-22 09:18 | CR ---
CHEST: 2 view CLINICAL HISTORY:Chest pain, dyspnea COMPARISON:None FINDINGS: The heart size, pulmonary vascularity and hilar structures are normal. No infiltrate effusion or pneumothorax is seen. IMPRESSION: No acute cardiopulmonary process.
== END 2020-10-19 19:52 | disposition home or self-care (01) ==
LOC: JP.ED 18:17
DX: R09.1 Pleurisy (principal); F17.200 Nicotine dependence, unspecified, uncomplicated
CPT/HCPCS: 36415; 71046; 71046-26; 85025; 86140; 99283; 99285-25

== ENCOUNTER 2021-03-28 14:28 | Emergency (ER) | payer MEDICAID ==
[2021-03-28] MEDS ORDERED: Sodium Chloride 0.9% 10 ML Syringe FLUSH PRN (15:26)
[2021-03-28] MEDS ORDERED: Ketorolac 30 MG/ML SDV IVPUSH ONE (15:28)
--- NOTE | 2021-03-28 15:29 | EDM.PDOC ---
ED HPI GENERAL MEDICAL PROBLEM - General Chief Complaint: Gastrointestinal Problem Stated Complaint: STOMACH PAIN, STARTED 2 HRS AGO Time Seen by Provider: 03/28/21 15:15 Source of Information: Reports: Patient, RN Notes Reviewed History Limitations: Reports: No Limitations - History of Present Illness INITIAL COMMENTS - FREE TEXT/NARRATIVE: 30-year-old gentleman presents emergency department day complaint of abdominal pain, he states it come on suddenly just a couple hours prior to presentation to the ED he has not taken anything for this pain no nausea vomiting he does have some diarrhea but that has been ongoing for some time used to take Suboxone in the past. He is still passing gas no history of abdominal surgeries Upper Abdomen Pain Score (Numeric/FACES): 8 - Related Data Allergies Allergy/AdvReac Type Severity Reaction Status Date / Time No Known Allergies Allergy Verified 03/28/21 14:42 Home Meds: Home Meds Cyclobenzaprine [Flexeril] 10 mg PO TID PRN 03/28/21 [History] Diphenoxylate HCl/Atropine [Lomotil] 1 tab PO Q6H PRN 03/28/21 [History] Gabapentin [Neurontin] 400 mg PO TID 03/28/21 [History] Past Medical History Cardiovascular History: Reports: Heart Murmur Gastrointestinal History: Reports: GERD Musculoskeletal History: Reports: Fracture Psychiatric History: Reports: Addiction Other Psychiatric History: ETOH and Pain medication Endocrine/Metabolic History: Reports: Obesity/BMI 30+ - Past Surgical History Musculoskeletal Surgical History: Reports: Other (See Below) Other Musculoskeletal Surgeries/Procedures:: bunion removed, surgery on r foot Social & Family History - Family History Family Medical History: No Pertinent Family History - Tobacco Use Tobacco Use Status *Q: Current Every Day Tobacco User Years of Tobacco use: 15 Packs/Tins Daily: 0.3 - Caffeine Use Caffeine Use: Reports: Coffee Other Caffeine Use: drinks redbull last 1 week. - Alcohol Use Date of Last Drink: 03/17/21 - Recreational Drug Use Recreational Drug Use: No ED ROS GENERAL - Review of Systems Review Of Systems: See Below Constitutional: Reports: No Symptoms Respiratory: Reports: No Symptoms Cardiovascular: Reports: No Symptoms GI/Abdominal: Reports: Abdominal Pain, Diarrhea, Flatus. Denies: Nausea, Vomiting : Reports: No Symptoms ED EXAM, GI/ABD - Physical Exam Exam: See Below Exam Limited By: No Limitations General Appearance: Alert, WD/WN, No Apparent Distress Respiratory/Chest: No Respiratory Distress GI/Abdominal Exam: Normal Bowel Sounds, Soft, No Distention, No Abnormal Bruit, No Mass, Tender (Epigastric region) Course - Vital Signs Last Recorded V/S: Last Vital Signs Temp 98.1 F 03/28/21 14:49 Pulse 71 03/28/21 14:49 Resp 16 03/28/21 14:49 BP 155/98 H 03/28/21 14:49 Pulse Ox 96 03/28/21 14:49 - Orders/Labs/Meds Orders: Active Orders 24 hr Category Date Time Status Peripheral IV Care [RC] . DIRECTED Care 03/28/21 15:26 Active DRUG SCREEN, URINE [URCHEM] Urgent Lab 03/28/21 15:26 Ordered UA W/O MICROSCOPIC [URIN] Urgent Lab 03/28/21 15:26 Ordered Lactated Ringers [Ringers, Lactated] 1,000 ml Med 03/28/21 15:30 Active IV ASDIRECTED Sodium Chloride 0.9% [Saline Flush] Med 03/28/21 15:26 Active 10 ml FLUSH ASDIRECTED PRN Peripheral IV Insertion Adult [OM.PC] Urgent Oth 03/28/21 15:26 Ordered Medication Orders Lactated Ringer's (Ringers, Lactated) 1,000 mls @ 999 mls/hr IV ASDIRECTED PAMELA Last Admin: 03/28/21 15:38 Dose: 999 mls/hr Documented by: CRISS Sodium Chloride (Sodium Chloride 0.9% 10 Ml Syringe) 10 ml FLUSH ASDIRECTED PRN PRN Reason: Keep Vein Open Last Admin: 03/28/21 15:38 Dose: 10 ml Documented by: CRISS Labs: Laboratory Tests 03/28/21 03/28/21 03/28/21 Range/Units 15:39 15:39 15:39 WBC 6.2 (4.5-11.0) K/uL RBC 4.65 (4.30-5.90) M/uL Hgb 13.8 (12.0-15.0) g/dL Hct 38.9 L (40.0-54.0) % MCV 84 (80-98) fL MCH 30 (27-31) pg MCHC 36 (32-36) % Plt Count 155 (150-400) K/uL Neut % (Auto) 85.6 H (36-66) % Lymph % (Auto) 9.4 L (24-44) % [place] % (Auto) 3.9 (2-6) % Eos % (Auto) 0.8 L (2-4) % Baso % (Auto) 0.3 (0-1) % Sodium 137 L (140-148) mmol/L Potassium 3.7 (3.6-5.2) mmol/L Chloride 99 L (100-108) mmol/L Carbon Dioxide 24 (21-32) mmol/L Anion Gap 17.7 H (5.0-14.0) mmol/L BUN 7 (7-18) mg/dL Creatinine 0.9 (0.8-1.3) mg/dL Est Cr Clr Drug Dosing 115.06 mL/min Estimated GFR (MDRD) > 60 (>60) Glucose 105 (74-106) mg/dL Lactic Acid 1.1 (0.4-2.0) mmol/L Calcium 7.8 L (8.5-10.1) mg/dL Total Bilirubin 0.8 (0.2-1.0) mg/dL AST 88 H (15-37) U/L ALT 94 H (12-78) U/L Alkaline Phosphatase 69 (46-116) U/L Troponin I < 0.017 (0.000-0.056) ng/mL Total Protein 6.6 (6.4-8.2) g/dL Albumin 3.4 (3.4-5.0) g/dL Globulin 3.2 (2.3-3.5) g/dL Albumin/Globulin Ratio 1.1 L (1.2-2.2) Lipase 937 H (73-393) U/L Meds: Medications Generic Name Dose Route Start Last Admin Trade Name Freq PRN Reason Stop Dose Admin Lactated Ringer's 1,000 mls @ 999 mls/hr 03/28/21 15:30 03/28/21 15:38 Ringers, Lactated IV 999 mls/hr ASDIRECTED PAMELA Administration Sodium Chloride 10 ml 03/28/21 15:26 03/28/21 15:38 Sodium Chloride 0.9% 10 Ml Syringe FLUSH 10 ml ASDIRECTED PRN Administration Keep Vein Open Discontinued Medications Generic Name Dose Route Start Last Admin Trade Name Jovita PRN Reason Stop Dose Admin Sodium Chloride 85 mls @ 3.5 mls/sec 03/28/21 15:45 03/28/21 16:00 Normal Saline IV 03/28/21 15:46 3.5 mls/sec ASDIRECTED PAMELA Administration Iopamidol 148 ml 03/28/21 15:33 03/28/21 16:00 Iopamidol 612 Mg/Ml 500 Ml Multipack Bottle IV 03/28/21 15:34 148 ml ONETIME ONE Administration Ketorolac Tromethamine 30 mg 03/28/21 15:28 03/28/21 15:39 Ketorolac 30 Mg/Ml Sdv IVPUSH 03/28/21 15:29 30 mg ONETIME ONE Administration Sodium Chloride 10 ml 03/28/21 15:33 03/28/21 16:00 Sodium Chloride 0.9% 10 Ml Syringe FLUSH 03/28/21 15:34 10 ml ONETIME ONE Administration Departure - Departure Time of Disposition: 17:52 Disposition: Home, Self-Care 01 Condition: Fair Clinical Impression: Acute pancreatitis Qualifiers: Pancreatitis type: alcohol induced Acute pancreatitis complication: no infection or necrosis Qualified Code(s): K85.20 - Alcohol induced acute pancreatitis without necrosis or infection - Discharge Information Instructions: Acute Pancreatitis, [id number] Referrals: PCP,None [Primary Care Provider] - Forms: ED Department Discharge Additional Instructions: Limit your intake to clear liquids, use Percocet as needed for pain control please return to the emergency department if pain becomes unbearable or worsening of conditions. Sepsis Event Note (ED) - Evaluation Sepsis Screening Result: No Definite Risk - Focused Exam Vital Signs: Vital Signs Temp Pulse Resp BP Pulse Ox 03/28/21 14:49 98.1 F 71 16 155/98 H 96 03/28/21 14:39 98.1 F 71 16 155/98 H 96 - My Orders Last 24 Hours: My Active Orders 03/28/21 15:26 Peripheral IV Care [RC] . DIRECTED DRUG SCREEN, URINE [URCHEM] Urgent UA W/O MICROSCOPIC [URIN] Urgent Sodium Chloride 0.9% [Saline Flush] 10 ml FLUSH ASDIRECTED PRN Peripheral IV Insertion Adult [OM.PC] Urgent 03/28/21 15:30 Lactated Ringers [Ringers, Lactated] 1,000 ml IV ASDIRECTED - Assessment/Plan Last 24 Hours: My Active Orders 03/28/21 15:26 Peripheral IV Care [RC] . DIRECTED DRUG SCREEN, URINE [URCHEM] Urgent UA W/O MICROSCOPIC [URIN] Urgent Sodium Chloride 0.9% [Saline Flush] 10 ml FLUSH ASDIRECTED PRN Peripheral IV Insertion Adult [OM.PC] Urgent 03/28/21 15:30 Lactated Ringers [Ringers, Lactated] 1,000 ml IV ASDIRECTED Plan: Assessment Acuity = acute Site and laterality = acute pancreatitis early onset Etiology = probably related to alcohol Manifestations = abdominal pain Location of injury = Home Lab values = CBC unremarkable AST elevated 88 ALT elevated 94 consistent with elevated liver enzymes troponin was negative lactic acid normal 1.1 lipase elevated 937 consistent with early pancreatitis CT scan describes edema around the pancreas also consistent with acute pancreatitis Plan I did discuss his lab results CT scan results with him offered him admission of which he declined he states he would for to go home and just do bowel rest at home I did provide him cassettes 1 tablet every 6 hours total #12 This note was dictated using [employer] recognition software please call with any questions on syntax or grammar.
[2021-03-28] MEDS ORDERED: Lactated Ringers 1,000 ML IV SCH (15:30)
[2021-03-28] MEDS ORDERED: Iopamidol 612 MG/ML 500 ML Multipack Bottle IV ONE (15:33)
[2021-03-28] MEDS ORDERED: Sodium Chloride 0.9% 10 ML Syringe FLUSH ONE (15:33)
--- NOTE | 2021-03-28 16:48 | CRLCT ---
For Patients: As a result of the Century Cures Act, medical imaging exams and procedure reports are released immediately into your electronic medical record. You may view this report before your referring provider. If you have questions, please contact your health care provider. INDICATION: Epigastric abdomen pain. TECHNIQUE: CT abdomen and pelvis acquired with 148 cc Isovue-300 IV contrast. COMPARISON: None. FINDINGS: Lower chest: Unremarkable. Liver: Diffuse fatty infiltration. No focal lesions. Gallbladder and bile ducts: Unremarkable. No stones or inflammation. No biliary dilatation. Pancreas: There is a moderate amount of edema about the pancreatic head and adjacent duodenum. Remainder of the pancreas and peripancreatic tissues are unremarkable. Spleen: Unremarkable. Normal in size. No masses. Adrenal glands: Unremarkable. No nodules. Kidneys: Unremarkable. No suspicious masses, stones, or hydronephrosis. GI tract: Unremarkable. Normal in caliber. No sign of mass or inflammation. Normal appendix. Vasculature: Unremarkable. Mesenteric arteries are patent. Lymph nodes: No lymphadenopathy. Omentum/Peritoneum/Abdominal Wall: Unremarkable. No sign of mass or infiltration. No free air or significant free fluid. Pelvis: Unremarkable. Bones: Unremarkable for age. IMPRESSION: Moderate amount of edema surrounding the pancreatic head and adjacent duodenum likely representing primary acute pancreatitis with other complications. Remainder of the exam is unremarkable. Dictated by Cb Salomon MD @ 03/28/2021 4:46:50 PM Please note that all CT scans at this facility use dose modulation, iterative reconstruction, and/or weight-based dosing when appropriate to reduce radiation dose to as low as reasonably achievable. Dictated by: Cb Salomon MD @ 03/28/2021 16:46:57 (Electronically Signed)
== END 2021-03-28 18:30 | disposition home or self-care (01) ==
LOC: JP.ED 14:28
DX: K85.20 Alcohol induced acute pancreatitis without necrosis or infection (principal); E66.9 Obesity, unspecified; Z72.0 Tobacco use; Z68.33 Body mass index [BMI] 33.0-33.9, adult
CPT/HCPCS: 36415; 74177; 80053; 83605; 83690; 84484; 85025; 96374; 99284; J1885; J7120; Q9967

== ENCOUNTER 2021-03-28 22:58 | Emergency (ER) | payer MEDICAID ==
[2021-03-28] MEDS ORDERED: Sodium Chloride 0.9% 500 ML IV ONE (23:44)
[2021-03-28] MEDS ORDERED: Ondansetron 4 MG/2 ML SDV IVPUSH ONE (23:44)
[2021-03-28] MEDS ORDERED: Sodium Chloride 0.9% 10 ML Syringe FLUSH PRN (23:44)
[2021-03-28] MEDS ORDERED: Pantoprazole 40 MG Vial IVPUSH ONE (23:44)
[2021-03-28] MEDS ORDERED: Morphine 4 MG/ML Syringe IVPUSH ONE (23:44)
[2021-03-29] MEDS ORDERED: Sodium Chloride 0.9% 500 ML IV ONE (00:36)
--- NOTE | 2021-03-29 00:42 | EDM.PDOC ---
ED HPI GENERAL MEDICAL PROBLEM - General Chief Complaint: Abdominal Pain Stated Complaint: STOMACH PAIN Time Seen by Provider: 03/28/21 23:33 Source of Information: Reports: Patient History Limitations: Reports: No Limitations - History of Present Illness INITIAL COMMENTS - FREE TEXT/NARRATIVE: Patient presents emergency room today secondary to increasing abdominal pain. He was seen in this emergency room earlier today diagnosed with pancreatitis and treated as an outpatient sent home with Percocet by Officer told to return the emergency room should he have increasing pain or discomfort patient denies any nausea vomiting fevers chills or symptoms otherwise he just states that his abdominal pain is increasing in nature to include bloating sensation he states that he has feeling like his abdomen is going to explode. States that pain is an 8 out of 10 sharp stabbing in nature he denies any nausea vomiting fevers or chills or symptoms otherwise PMH--chronic foot pain, obesity Meds--gabapentin, cyclobenzaprine, lomotil, hx suboxone use NKDA Tob--1/2 ppd EtOH--patient denies but previous ER visit is noted for last drinking episode 17 March Drugs--denies Onset: Today - Related Data Allergies Allergy/AdvReac Type Severity Reaction Status Date / Time No Known Allergies Allergy Verified 03/28/21 23:34 Home Meds: Home Meds Cyclobenzaprine [Flexeril] 10 mg PO TID PRN 03/28/21 [History] Diphenoxylate HCl/Atropine [Lomotil] 1 tab PO Q6H PRN 03/28/21 [History] Gabapentin [Neurontin] 400 mg PO TID 03/28/21 [History] Past Medical History Cardiovascular History: Reports: Heart Murmur Gastrointestinal History: Reports: GERD Musculoskeletal History: Reports: Fracture Psychiatric History: Reports: Addiction Other Psychiatric History: ETOH and Pain medication Endocrine/Metabolic History: Reports: Obesity/BMI 30+ - Past Surgical History Musculoskeletal Surgical History: Reports: Other (See Below) Other Musculoskeletal Surgeries/Procedures:: bunion removed, surgery on r foot Social & Family History - Family History Family Medical History: No Pertinent Family History - Tobacco Use Tobacco Use Status *Q: Never Tobacco User - Caffeine Use Caffeine Use: Reports: Coffee Other Caffeine Use: drinks redbull last 1 week. ED ROS GENERAL - Review of Systems Review Of Systems: Comprehensive ROS is negative, except as noted in HPI. Constitutional: Reports: No Symptoms HEENT: Reports: No Symptoms Respiratory: Reports: No Symptoms Cardiovascular: Reports: No Symptoms GI/Abdominal: Reports: Abdominal Pain. Denies: Nausea ED EXAM, GI/ABD - Physical Exam Exam: See Below Exam Limited By: No Limitations General Appearance: Alert, Moderate Distress, Obese Eyes: Bilateral: Normal Appearance, EOMI Ears: Normal External Exam, Hearing Grossly Normal Nose: Normal Inspection Throat/Mouth: Normal Inspection, Normal Voice, No Airway Compromise Head: Atraumatic, Normocephalic Neck: Normal Inspection, Supple, Non-Tender, Full Range of Motion Respiratory/Chest: No Respiratory Distress, Lungs Clear, Normal Breath Sounds, Chest Non-Tender Cardiovascular: Normal Peripheral Pulses, Regular Rate, Rhythm, No Edema, No Murmur GI/Abdominal Exam: Soft, Tender (diffuse--focal mid-abdominal to left side), Abnormal Bowel Sounds (hypoactive). No: Guarding, Rigid, Rebound (Male) Exam: Deferred Rectal (Males) Exam: Deferred Back Exam: Normal Inspection, Full Range of Motion Extremities: Normal Inspection, Normal Range of Motion, No Pedal Edema, Normal Capillary Refill Neurological: Alert, Oriented, Normal Cognition, Normal Gait, No Motor/Sensory Deficits Psychiatric: Normal Affect, Normal Mood Skin Exam: Warm, Dry, Intact, Normal Color Course - Vital Signs Text/Narrative:: Reviewed previous ER visit after patient exam CT abdomen of pelvis was completed noted for diffuse fatty liver pancreatic attic anemia at the head and duodenum consistent with acute pancreatitis patient was discharged with Percocet for pain control. Labs are noted for elevated lipase normal white blood cell count at that visit we will repeat labs provide IV fluids pain medication Protonix antiemetic and plan for discharge if no acute concerns are noted on repeat labs 0044--labs have been reviewed urine drug screen is positive for TCA marijuana and opiatesopiates are the only noted prescribed medication. CBC is fairly unremarkable white blood cell count is stable at 6.1 his neutrophil percent has decreased slightly from 85 to now 80% platelets have also decreased slightly from 1 52-1 46. Sodium and potassium have decreased slightly and a136 now and K3.2. Liver enzymes AST/ALT are essentially the same 88/90 4 repeat now 87/88. Total bili is mildly increased 0.8 earlier today now 1.1. Ambulates at this visit was noted to be elevated at 146 no previous for comparison. Lipase has increased slightly 937 to now 1204. We will continue with IV fluids pain control patient has received antiemetic and Protonix he states the pain is now down to a 6 out of 10 he has had no nausea or vomiting in the emergency room tonight plan will be for discharge with clinic follow-up next week bland diet clear liquids over the weekend for hydration and avoidance of any foods until he is feeling improved patient has pain medication already available we will start with PPI and antiemetic if he does not have those already available verbalized understanding agree with plan of care Last Recorded V/S: Last Vital Signs Temp 99.0 F 03/28/21 23:35 Pulse 82 03/28/21 23:35 Resp 16 03/28/21 23:35 BP 167/110 H 03/28/21 23:35 Pulse Ox 98 03/28/21 23:35 - Orders/Labs/Meds Orders: Active Orders 24 hr Category Date Time Status Sodium Chloride 0.9% [Normal Saline] 500 ml Med 03/29/21 00:36 Active IV .BOLUS Sodium Chloride 0.9% [Saline Flush] Med 03/28/21 23:44 Active 10 ml FLUSH ASDIRECTED PRN Saline Lock Insert [OM.PC] Routine Oth 03/28/21 23:44 Ordered Medication Orders Sodium Chloride (Normal Saline) 500 mls @ 500 mls/hr IV .BOLUS ONE Stop: 03/29/21 01:35 Last Admin: 03/29/21 00:52 Dose: 500 mls/hr Documented by: ROSA Sodium Chloride (Sodium Chloride 0.9% 10 Ml Syringe) 10 ml FLUSH ASDIRECTED PRN PRN Reason: Keep Vein Open Labs: Laboratory Tests 03/28/21 03/28/21 03/28/21 Range/Units 23:46 23:46 23:55 WBC 6.1 (4.5-11.0) K/uL RBC 4.64 (4.30-5.90) M/uL Hgb 13.8 (12.0-15.0) g/dL Hct 38.6 L (40.0-54.0) % MCV 83 (80-98) fL MCH 30 (27-31) pg MCHC 36 (32-36) % Plt Count 146 L (150-400) K/uL Neut % (Auto) 80.3 H (36-66) % Lymph % (Auto) 12.9 L (24-44) % Harvey % (Auto) 5.9 (2-6) % Eos % (Auto) 0.7 L (2-4) % Baso % (Auto) 0.2 (0-1) % Sodium (140-148) mmol/L Potassium (3.6-5.2) mmol/L Chloride (100-108) mmol/L Carbon Dioxide (21-32) mmol/L Anion Gap (5.0-14.0) mmol/L BUN (7-18) mg/dL Creatinine (0.8-1.3) mg/dL Est Cr Clr Drug Dosing Estimated GFR (MDRD) (>60) Glucose (74-106) mg/dL Calcium (8.5-10.1) mg/dL Total Bilirubin (0.2-1.0) mg/dL AST (15-37) U/L ALT (12-78) U/L Alkaline Phosphatase (46-116) U/L Total Protein (6.4-8.2) g/dL Albumin (3.4-5.0) g/dL Globulin (2.3-3.5) g/dL Albumin/Globulin Ratio (1.2-2.2) Amylase (25-115) U/L Lipase (73-393) U/L Urine Color Yellow (YELLOW) Urine Appearance Clear (CLEAR) Urine pH 7.5 (5.0-8.0) Ur Specific [place] 1.015 (1.008-1.030) Urine Protein Negative (NEGATIVE) mg/dL Urine Glucose (UA) Negative (NEGATIVE) mg/dL Urine Ketones Negative (NEGATIVE) mg/dL Urine Occult Blood Trace-intact H (NEGATIVE) Urine Nitrite Negative (NEGATIVE) Urine Bilirubin Negative (NEGATIVE) Urine Urobilinogen 0.2 (0.2-1.0) EU/dL Ur Leukocyte Esterase Negative (NEGATIVE) Urine RBC Not seen (0-5) Urine WBC 0-5 (0-5) Ur Epithelial Cells Not seen Amorphous Sediment Not seen Urine Bacteria Rare Urine Mucus Not seen Urine Opiates Screen Negative (NEGATIVE) Ur Oxycodone Screen Presumptive positive H (NEGATIVE) Urine Methadone Screen Negative (NEGATIVE) Ur Propoxyphene Screen Negative (NEGATIVE) Ur Barbiturates Screen Negative (NEGATIVE) Ur Tricyclics Screen Presumptive positive H (NEGATIVE) Ur Phencyclidine Scrn Negative (NEGATIVE) Ur Amphetamine Screen Negative (NEGATIVE) U Methamphetamines Scrn Negative (NEGATIVE) Urine MDMA Screen Negative (NEGATIVE) U Benzodiazepines Scrn Negative (NEGATIVE) U Cocaine Metab Screen Negative (NEGATIVE) U Marijuana (THC) Screen Presumptive positive H (NEGATIVE) Ethyl Alcohol mg/dL 03/28/21 03/28/21 Range/Units 23:55 23:55 WBC (4.5-11.0) K/uL RBC (4.30-5.90) M/uL Hgb (12.0-15.0) g/dL Hct (40.0-54.0) % MCV (80-98) fL MCH (27-31) pg MCHC (32-36) % Plt Count (150-400) K/uL Neut % (Auto) (36-66) % Lymph % (Auto) (24-44) % Harvey % (Auto) (2-6) % Eos % (Auto) (2-4) % Baso % (Auto) (0-1) % Sodium 136 L (140-148) mmol/L Potassium 3.2 L (3.6-5.2) mmol/L Chloride 98 L (100-108) mmol/L Carbon Dioxide 25 (21-32) mmol/L Anion Gap 16.2 H (5.0-14.0) mmol/L BUN 7 (7-18) mg/dL Creatinine 0.8 (0.8-1.3) mg/dL Est Cr Clr Drug Dosing TNP Estimated GFR (MDRD) > 60 (>60) Glucose 94 (74-106) mg/dL Calcium 7.7 L (8.5-10.1) mg/dL Total Bilirubin 1.1 H (0.2-1.0) mg/dL AST 87 H (15-37) U/L ALT 88 H (12-78) U/L Alkaline Phosphatase 78 (46-116) U/L Total Protein 6.7 (6.4-8.2) g/dL Albumin 3.6 (3.4-5.0) g/dL Globulin 3.1 (2.3-3.5) g/dL Albumin/Globulin Ratio 1.2 (1.2-2.2) Amylase 146 H (25-115) U/L Lipase 1204 H (73-393) U/L Urine Color (YELLOW) Urine Appearance (CLEAR) Urine pH (5.0-8.0) Ur Specific [place] (1.008-1.030) Urine Protein (NEGATIVE) mg/dL Urine Glucose (UA) (NEGATIVE) mg/dL Urine Ketones (NEGATIVE) mg/dL Urine Occult Blood (NEGATIVE) Urine Nitrite (NEGATIVE) Urine Bilirubin (NEGATIVE) Urine Urobilinogen (0.2-1.0) EU/dL Ur Leukocyte Esterase (NEGATIVE) Urine RBC (0-5) Urine WBC (0-5) Ur Epithelial Cells Amorphous Sediment Urine Bacteria Urine Mucus Urine Opiates Screen (NEGATIVE) Ur Oxycodone Screen (NEGATIVE) Urine Methadone Screen (NEGATIVE) Ur Propoxyphene Screen (NEGATIVE) Ur Barbiturates Screen (NEGATIVE) Ur Tricyclics Screen (NEGATIVE) Ur Phencyclidine Scrn (NEGATIVE) Ur Amphetamine Screen (NEGATIVE) U Methamphetamines Scrn (NEGATIVE) Urine MDMA Screen (NEGATIVE) U Benzodiazepines Scrn (NEGATIVE) U Cocaine Metab Screen (NEGATIVE) U Marijuana (THC) Screen (NEGATIVE) Ethyl Alcohol 3 mg/dL Meds: Medications Generic Name Dose Route Start Last Admin Trade Name Freq PRN Reason Stop Dose Admin Sodium Chloride 500 mls @ 500 mls/hr 03/29/21 00:36 03/29/21 00:52 Normal Saline IV 03/29/21 01:35 500 mls/hr .BOLUS ONE Administration Sodium Chloride 10 ml 03/28/21 23:44 Sodium Chloride 0.9% 10 Ml Syringe FLUSH ASDIRECTED PRN Keep Vein Open Discontinued Medications Generic Name Dose Route Start Last Admin Trade Name Freq PRN Reason Stop Dose Admin Sodium Chloride 500 mls @ 500 mls/hr 03/28/21 23:44 03/28/21 23:56 Normal Saline IV 03/29/21 00:43 500 mls/hr .BOLUS ONE Administration Morphine Sulfate 4 mg 03/28/21 23:44 03/29/21 00:07 Morphine 4 Mg/Ml Syringe IVPUSH 03/28/21 23:45 4 mg ONETIME ONE Administration Morphine Sulfate 4 mg 03/29/21 01:26 Morphine 4 Mg/Ml Syringe IVPUSH 03/29/21 01:27 ONETIME ONE Ondansetron HCl 4 mg 03/28/21 23:44 03/29/21 00:07 Ondansetron 4 Mg/2 Ml Sdv IVPUSH 03/28/21 23:45 4 mg ONETIME ONE Administration Pantoprazole Sodium 40 mg 03/28/21 23:44 03/29/21 00:07 Pantoprazole 40 Mg Vial IVPUSH 03/28/21 23:45 40 mg ONETIME ONE Administration Departure - Departure Time of Disposition: 01:27 Disposition: Home, Self-Care 01 Clinical Impression: Pancreatitis, alcoholic, acute - Discharge Information Instructions: Acute Pancreatitis, Part-uk-Ypri Referrals: PCP,None [Primary Care Provider] - Forms: ED Department Discharge Additional Instructions: Ensure you are drinking plenty of fluids--water, juice, sports drinks of choice to stay well hydrated. Other options include jello, soup, popcicles. Avoid any alcholic beverages/products as this will only exacerbate your pancreatitis When you start adding solid foods in the next 2 days then eat bland foods, avoid fried/fatty foods--start with small amounts I have provided you with prescription for nausea medication (ondansetron) as well as a medication to help decrease stomach acid (pantoprazole)--you already have pain medication (oxycodone/acetaminophen) from your earlier ER visit Follow up with your family doctor on Thursday for repeat labs and further medical care needs; return to the ER if symptoms are worsening--you will have pain due to the pancreatitis and this will take time to heal Sepsis Event Note (ED) - Evaluation Sepsis Screening Result: No Definite Risk - Focused Exam Vital Signs: Vital Signs Temp Pulse Resp BP Pulse Ox 03/28/21 23:35 99.0 F 82 16 167/110 H 98 - My Orders Last 24 Hours: My Active Orders 03/28/21 23:44 Sodium Chloride 0.9% [Saline Flush] 10 ml FLUSH ASDIRECTED PRN Saline Lock Insert [OM.PC] Routine 03/29/21 00:36 Sodium Chloride 0.9% [Normal Saline] 500 ml IV .BOLUS - Assessment/Plan Last 24 Hours: My Active Orders 03/28/21 23:44 Sodium Chloride 0.9% [Saline Flush] 10 ml FLUSH ASDIRECTED PRN Saline Lock Insert [OM.PC] Routine 03/29/21 00:36 Sodium Chloride 0.9% [Normal Saline] 500 ml IV .BOLUS
[2021-03-29] MEDS ORDERED: Morphine 4 MG/ML Syringe IVPUSH ONE (01:26)
== END 2021-03-29 02:23 | disposition home or self-care (01) ==
LOC: JP.ED 22:58
DX: K85.20 Alcohol induced acute pancreatitis without necrosis or infection (principal); E66.9 Obesity, unspecified; Z68.33 Body mass index [BMI] 33.0-33.9, adult
CPT/HCPCS: 36415; 80053; 80305; 80307; 81001; 82150; 83690; 85025; 96374; 96375; 96376; 99284; C9113; J2270; J2405; J7030; J7040

== ENCOUNTER 2021-04-30 18:01 | Emergency (ER) | payer MEDICAID ==
[2021-04-30] MEDS ORDERED: Albuterol/Ipratropium 3.0-0.5 MG/3 ML Neb Soln NEB ONE (18:41)
--- NOTE | 2021-04-30 18:46 | EDM.PDOC ---
ED HPI GENERAL MEDICAL PROBLEM - General Chief Complaint: Lower Extremity Injury/Pain Stated Complaint: INJURED LEFT BIG TOE Time Seen by Provider: 04/30/21 18:46 Source of Information: Reports: Patient History Limitations: Reports: No Limitations - History of Present Illness INITIAL COMMENTS - FREE TEXT/NARRATIVE: [place] the park and he fell and injured the left great toe. He is having alot of pain in the area. Onset: Today, Sudden Duration: Hour(s): Location: Reports: Lower Extremity, Left Associated Symptoms: Reports: No Other Symptoms Left Toe-Hailux Pain Score (Numeric/FACES): 7 - Related Data Allergies Allergy/AdvReac Type Severity Reaction Status Date / Time No Known Allergies Allergy Verified 04/30/21 18:34 Home Meds: Home Meds Cyclobenzaprine [Flexeril] 10 mg PO TID PRN 03/28/21 [History] Diphenoxylate HCl/Atropine [Lomotil] 1 tab PO Q6H PRN 03/28/21 [History] Gabapentin [Neurontin] 400 mg PO TID 03/28/21 [History] Past Medical History Cardiovascular History: Reports: Heart Murmur Gastrointestinal History: Reports: GERD Musculoskeletal History: Reports: Fracture Psychiatric History: Reports: Addiction Other Psychiatric History: ETOH and Pain medication Endocrine/Metabolic History: Reports: Obesity/BMI 30+ - Infectious Disease History Infectious Disease History: Reports: None - Past Surgical History Musculoskeletal Surgical History: Reports: Other (See Below) Other Musculoskeletal Surgeries/Procedures:: bunion removed, surgery on r foot Social & Family History - Family History Family Medical History: No Pertinent Family History - Tobacco Use Tobacco Use Status *Q: Current Every Day Tobacco User Years of Tobacco use: 15 Packs/Tins Daily: 0.4 - Caffeine Use Caffeine Use: Reports: Coffee, Energy Drinks Other Caffeine Use: drinks redbull last 1 week. - Recreational Drug Use Recreational Drug Type: Reports: Marijuana/Hashish, Methamphetamine Review of Systems - Review of Systems Review Of Systems: See Below Constitutional: Reports: No Symptoms Eyes: Reports: No Symptoms Ears: Reports: No Symptoms Nose: Reports: No Symptoms Mouth/Throat: Reports: No Symptoms Respiratory: Reports: No Symptoms Cardiovascular: Reports: No Symptoms Musculoskeletal: Reports: Other ( slight swelling of the mp joint of the great toe. ) Skin: Reports: No Symptoms ED EXAM, GENERAL - Physical Exam Exam: See Below Free Text/Narrative:: pt fell and injured the left great toe at the park. Exam Limited By: No Limitations General Appearance: Alert Extremities: Other (pt is tender over the left great toe mp joint. He has slight swelling. ) Course - Vital Signs Last Recorded V/S: Last Vital Signs Temp 36.6 C 04/30/21 18:38 Pulse 83 04/30/21 18:38 Resp 18 04/30/21 18:38 BP 131/85 04/30/21 18:38 Pulse Ox 96 04/30/21 18:38 - Orders/Labs/Meds Orders: Active Orders 24 hr Category Date Time Status RT Aerosol Therapy [RC] ASDIRECTED Care 04/30/21 18:41 Active Foot Comp Min 3V Lt [CR] Stat Exams 04/30/21 18:44 Taken Meds: Medications Discontinued Medications Generic Name Dose Route Start Last Admin Trade Name Freq PRN Reason Stop Dose Admin Hydrocodone Bitart/Acetaminophen 1 tab 04/30/21 19:49 Acetaminophen/Hydrocodone 325-5 Mg Tab PO 04/30/21 19:50 ONETIME ONE Albuterol/Ipratropium 3 ml 04/30/21 18:41 04/30/21 19:43 Albuterol/Ipratropium 3.0-0.5 Mg/3 Ml Neb Soln NEB 04/30/21 18:42 Not Given ONETIME ONE Ketorolac Tromethamine 60 mg 04/30/21 19:47 Ketorolac 30 Mg/Ml Sdv IM 04/30/21 19:48 ONETIME ONE - Re-Assessments/Exams Free Text/Narrative Re-Assessment/Exam: 04/30/21 19:54 xray reveals no fractures. He was given torodol im and 1 norco. Departure - Departure Time of Disposition: 19:50 Disposition: Home, Self-Care 01 Condition: Fair Clinical Impression: Sprain of great toe - Discharge Information Referrals: Alek Hernandez MD [Primary Care Provider] - Forms: ED Department Discharge Care Plan Goals: cool pack ice pack, crutches, torodol 10 mg q6h prn for pain Sepsis Event Note (ED) - Evaluation Sepsis Screening Result: No Definite Risk - Focused Exam Vital Signs: Vital Signs Temp Pulse Resp BP Pulse Ox 04/30/21 18:38 36.6 C 83 18 131/85 96 04/30/21 18:34 36.6 C 83 18 131/85 96 - My Orders Last 24 Hours: My Active Orders 04/30/21 18:41 RT Aerosol Therapy [RC] ASDIRECTED 04/30/21 18:44 Foot Comp Min 3V Lt [CR] Stat - Assessment/Plan Last 24 Hours: My Active Orders 04/30/21 18:41 RT Aerosol Therapy [RC] ASDIRECTED 04/30/21 18:44 Foot Comp Min 3V Lt [CR] Stat
[2021-04-30] MEDS ORDERED: Ketorolac 30 MG/ML SDV IM ONE (19:47)
[2021-04-30] MEDS ORDERED: Acetaminophen/HYDROcodone 325-5 MG Tab PO ONE (19:49)
--- NOTE | 2021-05-01 09:38 | CR ---
Foot Comp Min 3V Lt CLINICAL HISTORY: Tripped FINDINGS: There is a marginal articular fracture at the base of the first proximal phalanx medially. There is some bunion formation IMPRESSION: Marginal articular fracture base of first proximal phalanx
== END 2021-04-30 20:24 | disposition home or self-care (01) ==
LOC: JP.ED 18:01
DX: S93.502A Unspecified sprain of left great toe, initial encounter (principal); E66.9 Obesity, unspecified; Z68.27 Body mass index [BMI] 27.0-27.9, adult; Z72.0 Tobacco use; W18.39XA Other fall on same level, initial encounter; Y92.830 Public park as the place of occurrence of the external cause
CPT/HCPCS: 73630-26-LT; 73630-LT; 96372; 99283-25; A9270-GY; J1885

== ENCOUNTER 2021-10-25 18:20 | Emergency (ER) | payer MEDICAID ==
[2021-10-25] MEDS ORDERED: Ketorolac 30 MG/ML SDV IM ONE (21:10)
== END 2021-10-25 21:30 | disposition home or self-care (01) ==
LOC: JP.ED 18:20
DX: R07.89 Other chest pain (principal); E66.9 Obesity, unspecified; Z68.32 Body mass index [BMI] 32.0-32.9, adult; Z72.0 Tobacco use
CPT/HCPCS: 36415; 71045; 84484; 85025; 93005; 93010; 96372; 99283; 99285; J1885

== ENCOUNTER 2021-11-16 14:35 | Emergency (ER) | payer MEDICAID | END 2021-11-16 15:33 | disposition home or self-care (01) | LOC: JP.ED 14:35 | DX: L98.9 Disorder of the skin and subcutaneous tissue, unspecified (principal); K21.9 Gastro-esophageal reflux disease without esophagitis; E66.9 Obesity, unspecified; Z72.0 Tobacco use; Z68.33 Body mass index [BMI] 33.0-33.9, adult | CPT/HCPCS: 87070; 87077; 87186; 87205; 99282; 99283 ==

== ENCOUNTER 2022-05-20 21:28 | Emergency (ER) | payer MEDICAID | END 2022-05-20 22:23 | disposition home or self-care (01) | LOC: JP.ED 21:28 | DX: K12.2 Cellulitis and abscess of mouth (principal); B95.62 Methicillin resistant Staphylococcus aureus infection as the cause of diseases classified elsewhere; F17.210 Nicotine dependence, cigarettes, uncomplicated; E66.9 Obesity, unspecified; Z68.30 Body mass index [BMI] 30.0-30.9, adult; Z79.899 Other long term (current) drug therapy | CPT/HCPCS: 99283 ==

== ENCOUNTER 2022-12-26 13:25 | Emergency (ER) | payer MEDICAID ==
[2022-12-26] MEDS ORDERED: Ondansetron 4 MG Tab.DIS PO ONE (14:17)
[2022-12-26] MEDS ORDERED: Ketorolac 30 MG/ML SDV IM ONE (14:23)
[2022-12-26] MEDS ORDERED: Pantoprazole 40 MG Tab.CR PO SCH (14:30)
[2022-12-26 14:52] LABS: ESTIMATED GFR 116 mL/min (>60)
== END 2022-12-26 15:24 | disposition home or self-care (01) ==
LOC: JP.ED 13:25
DX: K29.20 Alcoholic gastritis without bleeding (principal); F10.10 Alcohol abuse, uncomplicated; E66.9 Obesity, unspecified; Z68.29 Body mass index [BMI] 29.0-29.9, adult; Z86.16 Personal history of COVID-19; Z72.0 Tobacco use
CPT/HCPCS: 36415; 80053; 83690; 85025; 96372; 99284; A9270; J1885; Q0162; 99283

== ENCOUNTER 2023-02-19 21:57 | Emergency (ER) | payer MEDICAID ==
[2023-02-20 00:42] LABS: BASOPHILS ABSOLUTE AUTO 0.06 K/uL (0.00-0.10); BASOPHILS PERCENT AUTO 1.3 % (0.1-1.3); EOSINOPHILS ABSOLUTE AUTO 0.14 K/uL (0.00-0.40); EOSINOPHILS PERCENT AUTO 2.9 % (0.0-5.4); HEMATOCRIT 39.6 % (38.4-49.7); IMMATURE GRAN ABSOLUTE AUTO 0.04 K/uL (0.00-0.23); IMMATURE GRAN PERCENT AUTO 0.8 % (0.0-0.7); LYMPHOCYTES ABSOLUTE AUTO 2.06 K/uL (0.8-3.3); LYMPHOCYTES PERCENT AUTO 43.3 % (11.4-47.7); MEAN CORPUSCULAR HEMOGLOBIN 30.8 pg (31.6-35.5); MEAN CORPUSCULAR HGB CONC 35.4 g/dL (31.6-35.5); MEAN CORPUSCULAR VOLUME 87.2 fL (81.4-99.0); MONOCYTES ABSOLUTE AUTO 0.39 K/uL (0.20-0.90); MONOCYTES PERCENT AUTO 8.2 % (3.3-12.6); NEUTROPHILS ABSOLUTE AUTO 2.07 K/uL (1.0-7.6); NEUTROPHILS PERCENT AUTO 43.5 % (40.0-78.1); PLATELET COUNT,PLT 274 K/uL (130-375); RED BLOOD CELL COUNT 4.54 M/uL (4.14-5.76); WHITE BLOOD CELL COUNT,WBC 4.8 K/uL (3.2-11.0)
[2023-02-20 00:51] LABS: A/G RATIO 1.2 (1.2-2.2); ALANINE AMINOTRANSFERASE,ALT 18 U/L (12-78); ALKALINE PHOSPHATASE 68 U/L (46-116); ANION GAP 13.7 mmol/L (5.0-14.0); ASPARTATE AMNIOTRANSFERASE,AST 18 U/L (15-37); BILIRUBIN TOTAL 0.5 mg/dL (0.2-1.0); BLOOD UREA NITROGEN,BUN 6 mg/dL (7-18); C-REACTIVE PROTEIN 0.13 mg/dL (0.0-0.3); CALCIUM 8.6 mg/dL (8.5-10.1); CARBON DIOXIDE,CO2 25 mmol/L (21-32); CHLORIDE,CL 102 mmol/L (100-108); CREATININE 0.8 mg/dL (0.8-1.3); EST CRCL DRUG DOSING (CG) 127.06 mL/min; ESTIMATED GFR 120 mL/min (>60); GLUCOSE RANDOM 106 mg/dL (74-106); POTASSIUM,K 3.7 mmol/L (3.6-5.2); PROTEIN TOTAL,TP 7.3 g/dL (6.4-8.2); SODIUM,NA 137 mmol/L (140-148); TROPONIN I HIGH SENSITIVITY < 4.0 pg/mL (<=60.3)
[2023-02-20 01:37] LABS: APPEARANCE,URINE CLEAR (CLEAR); BILIRUBIN,URINE NEGATIVE (NEGATIVE); COLOR,URINE YELLOW (YELLOW); GLUCOSE,URINE NEGATIVE (NEGATIVE); KETONES,URINE NEGATIVE (NEGATIVE); LEUKOCYTE ESTERASE,URINE NEGATIVE (NEGATIVE); NITRITE,URINE NEGATIVE (NEGATIVE); OCCULT BLOOD,URINE NEGATIVE (NEGATIVE); PROTEIN,URINE NEGATIVE (NEGATIVE)
[2023-02-20 01:46] LABS: AMPHETAMINES SCREEN, URINE NEGATIVE (NEGATIVE); METHAMPHETAMINES SCREEN, URINE NEGATIVE (NEGATIVE)
[2023-02-20 01:47] LABS: BARBITURATE SCREEN,URINE NEGATIVE (NEGATIVE); BENZODIAZEPINES SCREEN,URINE NEGATIVE (NEGATIVE); METHADONE SCREEN, URINE NEGATIVE (NEGATIVE); OXYCODONE SCREEN,URINE NEGATIVE (NEGATIVE); PROPOXYPHENE SCREEN,URINE NEGATIVE (NEGATIVE); THC SCREEN,URINE 50 NG/ML NEGATIVE (NEGATIVE)
== END 2023-02-20 01:45 | disposition home or self-care (01) ==
LOC: JP.ED 21:57
DX: R20.2 Paresthesia of skin (principal); F17.210 Nicotine dependence, cigarettes, uncomplicated; E66.9 Obesity, unspecified; Z68.33 Body mass index [BMI] 33.0-33.9, adult; Z86.16 Personal history of COVID-19
CPT/HCPCS: 36415; 80053; 80305-QW; 81003; 84484; 85025; 86140; 99284

== ENCOUNTER 2023-04-30 12:53 | Emergency (ER) | payer MEDICAID ==
[2023-04-30 13:14] LABS: BASOPHILS ABSOLUTE AUTO 0.04 K/uL (0.00-0.10); BASOPHILS PERCENT AUTO 0.8 % (0.1-1.3); EOSINOPHILS ABSOLUTE AUTO 0.07 K/uL (0.00-0.40); EOSINOPHILS PERCENT AUTO 1.5 % (0.0-5.4); HEMATOCRIT 38.2 % (38.4-49.7); HEMOGLOBIN 13.2 g/dL (12.9-16.9); IMMATURE GRAN ABSOLUTE AUTO 0.01 K/uL (0.00-0.23); IMMATURE GRAN PERCENT AUTO 0.2 % (0.0-0.7); LYMPHOCYTES ABSOLUTE AUTO 1.78 K/uL (0.8-3.3); LYMPHOCYTES PERCENT AUTO 37.4 % (11.4-47.7); MEAN CORPUSCULAR HEMOGLOBIN 30.8 pg (31.6-35.5); MEAN CORPUSCULAR HGB CONC 34.6 g/dL (31.6-35.5); MEAN CORPUSCULAR VOLUME 89.3 fL (81.4-99.0); MONOCYTES ABSOLUTE AUTO 0.51 K/uL (0.20-0.90); MONOCYTES PERCENT AUTO 10.7 % (3.3-12.6); NEUTROPHILS ABSOLUTE AUTO 2.35 K/uL (1.0-7.6); NEUTROPHILS PERCENT AUTO 49.4 % (40.0-78.1); PLATELET COUNT,PLT 255 K/uL (130-375); RED BLOOD CELL COUNT 4.28 M/uL (4.14-5.76); WHITE BLOOD CELL COUNT,WBC 4.8 K/uL (3.2-11.0)
[2023-04-30 13:36] LABS: A/G RATIO 1.2 (1.2-2.2); ALANINE AMINOTRANSFERASE,ALT 29 U/L (12-78); ALBUMIN 3.6 g/dL (3.4-5.0); ALKALINE PHOSPHATASE 53 U/L (46-116); ASPARTATE AMNIOTRANSFERASE,AST 17 U/L (15-37); BILIRUBIN TOTAL 0.4 mg/dL (0.2-1.0); BLOOD UREA NITROGEN,BUN 9 mg/dL (7-18); CALCIUM 8.8 mg/dL (8.5-10.1); CARBON DIOXIDE,CO2 30 mmol/L (21-32); CHLORIDE,CL 100 mmol/L (100-108); CREATININE 0.8 mg/dL (0.8-1.3); ESTIMATED GFR 120 mL/min (>60); GLUCOSE RANDOM 95 mg/dL (74-106); PROTEIN TOTAL,TP 6.6 g/dL (6.4-8.2); SODIUM,NA 137 mmol/L (140-148)
[2023-04-30] MEDS ORDERED: Ketorolac 30 MG/ML SDV IM ONE (14:19)
== END 2023-04-30 16:09 | disposition home or self-care (01) ==
LOC: JP.ED 12:53
DX: R07.89 Other chest pain (principal); K21.9 Gastro-esophageal reflux disease without esophagitis; E66.9 Obesity, unspecified; Z68.30 Body mass index [BMI] 30.0-30.9, adult; Z72.0 Tobacco use
CPT/HCPCS: 36415; 71045; 80053; 84484; 85025; 86140; 93005; 96372; 99285; J1885

== ENCOUNTER 2024-03-11 21:14 | Observation (INO) | payer MEDICAID ==
[2024-03-11 21:55] LABS: BASOPHILS ABSOLUTE AUTO 0.04 K/uL (0.00-0.10); BASOPHILS PERCENT AUTO 0.7 % (0.1-1.3); EOSINOPHILS ABSOLUTE AUTO 0.03 K/uL (0.00-0.40); EOSINOPHILS PERCENT AUTO 0.5 % (0.0-5.4); HEMATOCRIT 37.2 % (38.4-49.7); HEMOGLOBIN 13.4 g/dL (12.9-16.9); IMMATURE GRAN PERCENT AUTO 0.3 % (0.0-0.7); LYMPHOCYTES PERCENT AUTO 21.7 % (11.4-47.7); MEAN CORPUSCULAR HEMOGLOBIN 29.5 pg (31.6-35.5); MEAN CORPUSCULAR VOLUME 81.9 fL (81.4-99.0); MONOCYTES ABSOLUTE AUTO 0.31 K/uL (0.20-0.90); MONOCYTES PERCENT AUTO 5.2 % (3.3-12.6); NEUTROPHILS ABSOLUTE AUTO 4.29 K/uL (1.0-7.6); NEUTROPHILS PERCENT AUTO 71.6 % (40.0-78.1); PLATELET COUNT,PLT 173 K/uL (130-375); RED BLOOD CELL COUNT 4.54 M/uL (4.14-5.76)
[2024-03-11 21:57] LABS: IMMATURE GRAN ABSOLUTE AUTO 0.02 K/uL (0.00-0.23)
[2024-03-11] MEDS: Sodium Chloride 0.9% 1,000 ML IV SCH (21:59)
[2024-03-11] MEDS: HYDROmorphone 0.5 MG/0.5 ML Syringe IVPUSH ONE (22:00)
[2024-03-11] MEDS: Ondansetron 4 MG/2 ML SDV IVPUSH ONE (22:00)
[2024-03-11 22:11] LABS: C-REACTIVE PROTEIN 0.82 mg/dL (<0.50)
[2024-03-11 22:16] LABS: A/G RATIO 0.9 (1.2-2.2); ALANINE AMINOTRANSFERASE,ALT 88 U/L (12-78); ALBUMIN 3.9 g/dL (3.4-5.0); ALKALINE PHOSPHATASE 106 U/L (46-116); ASPARTATE AMNIOTRANSFERASE,AST 96 U/L (15-37); BILIRUBIN TOTAL 1.1 mg/dL (0.2-1.0); BLOOD UREA NITROGEN,BUN 10 mg/dL (7-18); CALCIUM 8.9 mg/dL (8.5-10.1); CARBON DIOXIDE,CO2 26 mmol/L (21-32); CHLORIDE,CL 99 mmol/L (100-108); CREATININE 0.8 mg/dL (0.8-1.3); EST CRCL DRUG DOSING (CG) 125.88 mL/min; ESTIMATED GFR 119 mL/min (>60); GLUCOSE RANDOM 99 mg/dL (74-106); POTASSIUM,K 3.3 mmol/L (3.6-5.2); PROTEIN TOTAL,TP 8.1 g/dL (6.4-8.2); SODIUM,NA 138 mmol/L (140-148)
[2024-03-11 22:19] LABS: ANION GAP 16.3 mmol/L (5.0-14.0)
[2024-03-11] MEDS: HYDROmorphone 1 MG/ML Syringe IVPUSH ONE (22:33)
[2024-03-11 22:37] LABS: APPEARANCE,URINE CLEAR (CLEAR); BILIRUBIN,URINE SMALL (NEGATIVE); COLOR,URINE YELLOW (YELLOW); GLUCOSE,URINE NEGATIVE (NEGATIVE); KETONES,URINE TRACE mg/dL (NEGATIVE); LEUKOCYTE ESTERASE,URINE NEGATIVE (NEGATIVE); NITRITE,URINE NEGATIVE (NEGATIVE); OCCULT BLOOD,URINE NEGATIVE (NEGATIVE); PROTEIN,URINE 100 mg/dL (NEGATIVE)
[2024-03-11 22:42] LABS: BACTERIA,URINE MODERATE; EPITHELIAL CELLS,URINE RARE; RBC,URINE 0-5 (0-5); WBC,URINE 0-5 (0-5)
[2024-03-11 22:43] LABS: AMORPHOUS SEDIMENT,URINE MODERATE; MUCUS,URINE MANY
[2024-03-11] MEDS: Iopamidol 612 MG/ML 100 ML Bottle IV SCH (23:10)
[2024-03-11] MEDS: Sodium Chloride 0.9% 100 ML IV SCH (23:10)
[2024-03-11] MEDS: Sodium Chloride 0.9% 10 ML Syringe FLUSH PRN (23:55)
[2024-03-12] MEDS: HYDROmorphone 1 MG/ML Syringe IVPUSH ONE (00:26)
[2024-03-12] MEDS: Sodium Chloride 0.9% 1,000 ML IV SCH ×2 (01:13→02:31)
[2024-03-12] MEDS ORDERED: Melatonin 3 MG Tab PO PRN (01:23)
[2024-03-12] MEDS ORDERED: hydrOXYzine HCL 100 MG/2 ML SDV IM PRN (01:23)
[2024-03-12] MEDS ORDERED: Ondansetron 4 MG Tab.DIS PO PRN (01:23)
[2024-03-12] MEDS ORDERED: Sennosides/Docusate Sodium 50-8.6 MG Tab PO PRN (01:23)
[2024-03-12] MEDS ORDERED: Ondansetron 4 MG/2 ML SDV IV PRN (01:23)
[2024-03-12] MEDS ORDERED: HYDROmorphone 1 MG/ML Syringe IM PRN (01:23)
[2024-03-12] MEDS: Nicotine 21 MG/24 Hr Patch TRDERM SCH (01:52)
[2024-03-12] MEDS: HYDROmorphone 1 MG/ML Syringe IVPUSH PRN (02:35)
[2024-03-12 05:29] LABS: HEMATOCRIT 34.4 % (38.4-49.7); HEMOGLOBIN 12.3 g/dL (12.9-16.9); MEAN CORPUSCULAR HEMOGLOBIN 29.9 pg (31.6-35.5); MEAN CORPUSCULAR HGB CONC 35.8 g/dL (31.6-35.5); MEAN CORPUSCULAR VOLUME 83.5 fL (81.4-99.0); RED BLOOD CELL COUNT 4.12 M/uL (4.14-5.76); WHITE BLOOD CELL COUNT,WBC 6.6 K/uL (3.2-11.0)
[2024-03-12 05:44] LABS: CREATININE 0.8 mg/dL (0.8-1.3); EST CRCL DRUG DOSING (CG) 125.88 mL/min; POTASSIUM,K 3.4 mmol/L (3.6-5.2)
[2024-03-12 05:48] LABS: ANION GAP 14.4 mmol/L (5.0-14.0)
[2024-03-12] MEDS: Acetaminophen 325 MG Tab PO PRN (10:07)
[2024-03-12] MEDS: oxyCODONE 5 MG Tab PO PRN (10:07)
[2024-03-12] MEDS ORDERED: Nicotine 21 MG/24 Hr Patch TRDERM SCH (16:00)
== END 2024-03-12 13:49 | disposition home or self-care (01) ==
LOC: JP.ED 21:14 → JP.2SS 03-12 00:36
PROVIDERS: ADMIT Registered Nurse; ATTEND Internal Medicine
DX: K85.20 Alcohol induced acute pancreatitis without necrosis or infection (principal); F10.10 Alcohol abuse, uncomplicated; K21.9 Gastro-esophageal reflux disease without esophagitis; E66.9 Obesity, unspecified; F11.99 Opioid use, unspecified with unspecified opioid-induced disorder; F17.210 Nicotine dependence, cigarettes, uncomplicated; Z79.899 Other long term (current) drug therapy; Z68.30 Body mass index [BMI] 30.0-30.9, adult
CPT/HCPCS: 36415; 74177; 80048; 80053; 81001; 82150; 83690; 85025; 85027; 86140; 99222; 99238; A9270; J1170; J2405; J3490; J7030; Q9967; 96361; 96374; 96375; 96376; 99285; 99285-25

== ENCOUNTER 2024-10-20 14:12 | Emergency (ER) | payer MEDICAID ==
[2024-10-20 14:55] LABS: BASOPHILS ABSOLUTE AUTO 0.06 K/uL (0.00-0.10); BASOPHILS PERCENT AUTO 1.6 % (0.1-1.3); EOSINOPHILS ABSOLUTE AUTO 0.03 K/uL (0.00-0.40); EOSINOPHILS PERCENT AUTO 0.8 % (0.0-5.4); HEMATOCRIT 39.3 % (38.4-49.7); HEMOGLOBIN 13.9 g/dL (12.9-16.9); IMMATURE GRAN PERCENT AUTO 0.3 % (0.0-0.7); LYMPHOCYTES ABSOLUTE AUTO 1.47 K/uL (0.8-3.3); LYMPHOCYTES PERCENT AUTO 39.2 % (11.4-47.7); MEAN CORPUSCULAR HEMOGLOBIN 30.4 pg (31.6-35.5); MEAN CORPUSCULAR HGB CONC 35.4 g/dL (31.6-35.5); MONOCYTES ABSOLUTE AUTO 0.27 K/uL (0.20-0.90); MONOCYTES PERCENT AUTO 7.2 % (3.3-12.6); NEUTROPHILS ABSOLUTE AUTO 1.91 K/uL (1.0-7.6); NEUTROPHILS PERCENT AUTO 50.9 % (40.0-78.1); PLATELET COUNT,PLT 306 K/uL (130-375); RED BLOOD CELL COUNT 4.57 M/uL (4.14-5.76); WHITE BLOOD CELL COUNT,WBC 3.8 K/uL (3.2-11.0)
[2024-10-20 14:56] LABS: IMMATURE GRAN ABSOLUTE AUTO 0.01 K/uL (0.00-0.23)
[2024-10-20 15:31] LABS: A/G RATIO 1.2 (1.2-2.2); ALANINE AMINOTRANSFERASE,ALT 39 U/L (12-78); ALBUMIN 4.4 g/dL (3.4-5.0); ALKALINE PHOSPHATASE 78 U/L (46-116); ANION GAP 12.7 mmol/L (5.0-14.0); ASPARTATE AMNIOTRANSFERASE,AST 34 U/L (15-37); BILIRUBIN TOTAL 0.6 mg/dL (0.2-1.0); BLOOD UREA NITROGEN,BUN 4 mg/dL (7-18); CALCIUM 8.9 mg/dL (8.5-10.1); CARBON DIOXIDE,CO2 27 mmol/L (21-32); CHLORIDE,CL 107 mmol/L (100-108); CREATININE 0.8 mg/dL (0.8-1.3); EST CRCL DRUG DOSING (CG) 124.69 mL/min; ESTIMATED GFR 118 mL/min (>60); GLUCOSE RANDOM 111 mg/dL (74-106); POTASSIUM,K 3.7 mmol/L (3.6-5.2); PROTEIN TOTAL,TP 8.1 g/dL (6.4-8.2); SODIUM,NA 147 mmol/L (140-148)
== END 2024-10-20 16:50 | disposition home or self-care (01) ==
LOC: JP.ED 14:12
DX: M48.02 Spinal stenosis, cervical region (principal); E66.9 Obesity, unspecified; F17.210 Nicotine dependence, cigarettes, uncomplicated; Z86.16 Personal history of COVID-19; Z68.30 Body mass index [BMI] 30.0-30.9, adult
CPT/HCPCS: 36415; 70450; 72125; 76377; 80053; 80307; 83605; 85025; 96372; 99285; J3360

== ENCOUNTER 2024-10-24 16:08 | Emergency (ER) | payer MEDICAID ==
[2024-10-24] MEDS: Cyclobenzaprine 10 MG Tab PO ONE (16:47)
[2024-10-24] MEDS: Ketorolac 30 MG/ML SDV IM ONE (16:47)
== END 2024-10-24 17:24 | disposition home or self-care (01) ==
LOC: JP.ED 16:08
DX: M62.830 Muscle spasm of back (principal); F17.210 Nicotine dependence, cigarettes, uncomplicated; Z79.899 Other long term (current) drug therapy; Z86.16 Personal history of COVID-19
CPT/HCPCS: 72100; 96372; 99283; A9270; J1885

== ENCOUNTER 2025-05-20 15:19 | Emergency (ER) | payer MEDICAID ==
[2025-05-20] MEDS ORDERED: MVI, Adult with Vitamin K 10 ML, Thiamine 100 MG, Folic Acid 1 MG, Magnesium Sulf 1 GM/... IV SCH (17:45)
[2025-05-20 17:46] LABS: BASOPHILS ABSOLUTE AUTO 0.06 K/uL (0.00-0.10); BASOPHILS PERCENT AUTO 1.3 % (0.1-1.3); EOSINOPHILS PERCENT AUTO 0.0 % (0.0-5.4); IMMATURE GRAN PERCENT AUTO 0.2 % (0.0-0.7); LYMPHOCYTES ABSOLUTE AUTO 1.40 K/uL (0.8-3.3); LYMPHOCYTES PERCENT AUTO 30.3 % (11.4-47.7); MONOCYTES ABSOLUTE AUTO 0.41 K/uL (0.20-0.90); MONOCYTES PERCENT AUTO 8.9 % (3.3-12.6); NEUTROPHILS ABSOLUTE AUTO 2.74 K/uL (1.0-7.6); NEUTROPHILS PERCENT AUTO 59.3 % (40.0-78.1); PLATELET COUNT,PLT 301 K/uL (130-375); RED BLOOD CELL COUNT 4.95 M/uL (4.14-5.76); WHITE BLOOD CELL COUNT,WBC 4.6 K/uL (3.2-11.0)
[2025-05-20 17:56] LABS: EOSINOPHILS ABSOLUTE AUTO 0.00 K/uL (0.00-0.40); IMMATURE GRAN ABSOLUTE AUTO 0.01 K/uL (0.00-0.23)
[2025-05-20 18:04] LABS: INR 1.8
[2025-05-20] MEDS: Iopamidol 755 Mg/ML 100 ML Bottle IV SCH (18:06)
[2025-05-20] MEDS: Sodium Chloride 0.9% 10 ML Syringe FLUSH ONE (18:06)
[2025-05-20 18:08] LABS: A/G RATIO 1.0 (1.2-2.2); ALANINE AMINOTRANSFERASE,ALT 63 U/L (12-78); ASPARTATE AMNIOTRANSFERASE,AST 63 U/L (15-37); BILIRUBIN TOTAL 0.5 mg/dL (0.2-1.0); BLOOD UREA NITROGEN,BUN 10 mg/dL (7-18); CARBON DIOXIDE,CO2 30 mmol/L (21-32); CHLORIDE,CL 102 mmol/L (100-108); CREATININE 0.8 mg/dL (0.8-1.3); EST CRCL DRUG DOSING (CG) 124.69 mL/min; ESTIMATED GFR 118 mL/min (>60); GLUCOSE RANDOM 116 mg/dL (74-106); POTASSIUM,K 3.8 mmol/L (3.6-5.2); PROTEIN TOTAL,TP 8.2 g/dL (6.4-8.2); SODIUM,NA 143 mmol/L (140-148)
[2025-05-20] MEDS: diphenhydrAMINE 50 MG/ML SDV IVPUSH ONE (18:20)
[2025-05-20] MEDS: Alum Hydrox/Mag Hydrox/Simeth 15 ML, Lidocaine 2% 15 ML PO ONE (18:58)
== END 2025-05-20 19:27 | disposition home or self-care (01) ==
LOC: JP.ED 15:19
DX: K85.20 Alcohol induced acute pancreatitis without necrosis or infection (principal); K21.9 Gastro-esophageal reflux disease without esophagitis; F17.210 Nicotine dependence, cigarettes, uncomplicated; Z86.16 Personal history of COVID-19
CPT/HCPCS: 36415; 74177; 80053; 80307; 83690; 83735; 85025; 85610; 96361; 96374; 96375; 99284; 99284-25; A9270-GY; J1200; J1790; J7030; Q9967

== ENCOUNTER 2025-06-10 13:58 | Emergency (ER) | payer MEDICAID | END 2025-06-10 15:45 | disposition home or self-care (01) | LOC: JP.ED 13:58 | DX: S20.211A Contusion of right front wall of thorax, initial encounter (principal); F10.920 Alcohol use, unspecified with intoxication, uncomplicated; F17.210 Nicotine dependence, cigarettes, uncomplicated; E66.9 Obesity, unspecified; Z86.16 Personal history of COVID-19; Z79.899 Other long term (current) drug therapy; Z68.30 Body mass index [BMI] 30.0-30.9, adult; Y90.9 Presence of alcohol in blood, level not specified; W22.8XXA Striking against or struck by other objects, initial encounter | CPT/HCPCS: 71046; 99283; A9270 ==

== ENCOUNTER 2025-07-24 13:17 | Emergency (ER) | payer MEDICAID ==
[2025-07-24 14:21] LABS: BASOPHILS PERCENT AUTO 0.5 % (0.1-1.3); EOSINOPHILS ABSOLUTE AUTO 0.04 K/uL (0.00-0.40); EOSINOPHILS PERCENT AUTO 0.9 % (0.0-5.4); IMMATURE GRAN PERCENT AUTO 0.2 % (0.0-0.7); LYMPHOCYTES ABSOLUTE AUTO 0.99 K/uL (0.8-3.3); LYMPHOCYTES PERCENT AUTO 22.6 % (11.4-47.7); MONOCYTES ABSOLUTE AUTO 0.25 K/uL (0.20-0.90); MONOCYTES PERCENT AUTO 5.7 % (3.3-12.6); NEUTROPHILS ABSOLUTE AUTO 3.07 K/uL (1.0-7.6); NEUTROPHILS PERCENT AUTO 70.1 % (40.0-78.1); PLATELET COUNT,PLT 224 K/uL (130-375); RED BLOOD CELL COUNT 4.46 M/uL (4.14-5.76); WHITE BLOOD CELL COUNT,WBC 4.4 K/uL (3.2-11.0)
[2025-07-24 14:22] LABS: BASOPHILS ABSOLUTE AUTO 0.02 K/uL (0.00-0.10); IMMATURE GRAN ABSOLUTE AUTO 0.01 K/uL (0.00-0.23)
[2025-07-24] MEDS: Ketorolac 30 MG/ML SDV IVPUSH ONE (14:27)
[2025-07-24 14:36] LABS: APPEARANCE,URINE CLEAR (CLEAR); GLUCOSE,URINE NEGATIVE (NEGATIVE); OCCULT BLOOD,URINE TRACE-INTACT (NEGATIVE)
[2025-07-24 14:41] LABS: A/G RATIO 1.1 (1.2-2.2); ALANINE AMINOTRANSFERASE,ALT 63 U/L (12-78); ASPARTATE AMNIOTRANSFERASE,AST 69 U/L (15-37); BILIRUBIN TOTAL 1.7 mg/dL (0.2-1.0); BLOOD UREA NITROGEN,BUN 12 mg/dL (7-18); CARBON DIOXIDE,CO2 27 mmol/L (21-32); CHLORIDE,CL 97 mmol/L (100-108); CREATININE 0.8 mg/dL (0.8-1.3); EST CRCL DRUG DOSING (CG) 124.69 mL/min; ESTIMATED GFR 118 mL/min (>60); GLUCOSE RANDOM 128 mg/dL (74-106); PROTEIN TOTAL,TP 7.3 g/dL (6.4-8.2); SODIUM,NA 136 mmol/L (140-148)
[2025-07-24 14:42] LABS: AMPHETAMINES SCREEN, URINE NEGATIVE (NEGATIVE); METHADONE SCREEN, URINE NEGATIVE (NEGATIVE); METHAMPHETAMINES SCREEN, URINE NEGATIVE (NEGATIVE); OXYCODONE SCREEN,URINE NEGATIVE (NEGATIVE); PROPOXYPHENE SCREEN,URINE NEGATIVE (NEGATIVE); THC SCREEN,URINE 50 NG/ML PRESUMPTIVE POSITIVE (NEGATIVE)
[2025-07-24 14:42] LABS: POTASSIUM,K 2.9 mmol/L (3.6-5.2)
[2025-07-24 14:44] LABS: SQUAMOUS EPITHELIAL CELLS,UR NOT SEEN /HPF; UROTHELIAL CELLS,URINE NOT SEEN /HPF
[2025-07-24] MEDS: Magnesium Sulfate 2 GM/50 mL 2 GM in Premix Bag 1 BAG IV ONE (15:04)
[2025-07-24] MEDS: Potassium Chloride 20 MEQ Tab.ER PO ONE (15:09)
[2025-07-24] MEDS: Alum Hydrox/Mag Hydrox/Simeth 15 ML, Lidocaine 2% 15 ML PO ONE (15:19)
== END 2025-07-24 16:57 | disposition home or self-care (01) ==
LOC: JP.ED 13:17
DX: K29.70 Gastritis, unspecified, without bleeding (principal); E66.9 Obesity, unspecified; Z68.32 Body mass index [BMI] 32.0-32.9, adult; F17.200 Nicotine dependence, unspecified, uncomplicated; Z86.16 Personal history of COVID-19; Z79.899 Other long term (current) drug therapy
CPT/HCPCS: 36415; 80053; 80305; 80307; 81001; 83690; 85025; 86140; 96361; 96365; 96366; 96375; 99284; A9270; J1308; J1885; J3475; J3490; J7030

== ENCOUNTER 2025-08-13 11:57 | Inpatient (IN) | payer MEDICAID ==
[2025-08-13] MEDS ORDERED: Naloxone 0.4 MG/ML SDV IVPUSH PRN (12:54)
[2025-08-13 13:03] LABS: BASOPHILS ABSOLUTE AUTO 0.04 K/uL (0.00-0.10); BASOPHILS PERCENT AUTO 0.4 % (0.1-1.3); EOSINOPHILS ABSOLUTE AUTO 0.03 K/uL (0.00-0.40); EOSINOPHILS PERCENT AUTO 0.3 % (0.0-5.4); IMMATURE GRAN ABSOLUTE AUTO 0.05 K/uL (0.00-0.23); IMMATURE GRAN PERCENT AUTO 0.5 % (0.0-0.7); LYMPHOCYTES ABSOLUTE AUTO 0.30 K/uL (0.8-3.3); LYMPHOCYTES PERCENT AUTO 2.7 % (11.4-47.7); MONOCYTES ABSOLUTE AUTO 0.27 K/uL (0.20-0.90); MONOCYTES PERCENT AUTO 2.5 % (3.3-12.6); NEUTROPHILS ABSOLUTE AUTO 10.32 K/uL (1.0-7.6); NEUTROPHILS PERCENT AUTO 93.6 % (40.0-78.1); PLATELET COUNT,PLT 160 K/uL (130-375); RED BLOOD CELL COUNT 5.22 M/uL (4.14-5.76); WHITE BLOOD CELL COUNT,WBC 11.0 K/uL (3.2-11.0)
[2025-08-13 13:25] LABS: ALANINE AMINOTRANSFERASE,ALT 754 U/L (12-78); BILIRUBIN TOTAL 1.4 mg/dL (0.2-1.0); BLOOD UREA NITROGEN,BUN 14 mg/dL (7-18); CARBON DIOXIDE,CO2 22 mmol/L (21-32); CHLORIDE,CL 94 mmol/L (100-108); CREATININE 0.9 mg/dL (0.8-1.3); EST CRCL DRUG DOSING (CG) 110.83 mL/min; ESTIMATED GFR 114 mL/min (>60); GLUCOSE RANDOM 122 mg/dL (74-106); POTASSIUM,K 4.0 mmol/L (3.6-5.2); PROTEIN TOTAL,TP 7.4 g/dL (6.4-8.2); SODIUM,NA 130 mmol/L (140-148)
[2025-08-13 13:46] LABS: A/G RATIO 1.0 (1.2-2.2)
[2025-08-13 13:47] LABS: ASPARTATE AMNIOTRANSFERASE,AST 952 U/L (15-37)
[2025-08-13 13:57] LABS: LACTIC ACID < 0.3 mmol/L (0.4-2.0)
[2025-08-13 14:57] LABS: APPEARANCE,URINE CLEAR (CLEAR); GLUCOSE,URINE NEGATIVE (NEGATIVE); OCCULT BLOOD,URINE TRACE-INTACT (NEGATIVE)
[2025-08-13 15:06] LABS: SQUAMOUS EPITHELIAL CELLS,UR FEW /HPF; UROTHELIAL CELLS,URINE NOT SEEN /HPF
[2025-08-13 15:07] LABS: AMPHETAMINES SCREEN, URINE NEGATIVE (NEGATIVE); METHADONE SCREEN, URINE NEGATIVE (NEGATIVE); METHAMPHETAMINES SCREEN, URINE NEGATIVE (NEGATIVE); OXYCODONE SCREEN,URINE NEGATIVE (NEGATIVE); PROPOXYPHENE SCREEN,URINE NEGATIVE (NEGATIVE); THC SCREEN,URINE 50 NG/ML PRESUMPTIVE POSITIVE (NEGATIVE)
[2025-08-13] MEDS: Lactated Ringers 1,000 ML IV SCH (15:08)
[2025-08-13] MEDS: Aluminum Hydroxide/Magnesium Hydroxide/Simethicone Susp 30 ML Cup PO PRN (15:15)
[2025-08-13] MEDS ORDERED: Magnesium Hydroxide 400 MG/5 ML Susp 30 ML Cup PO PRN (15:51)
[2025-08-13] MEDS ORDERED: Ondansetron 4 MG Tab.DIS PO PRN (15:51)
[2025-08-13] MEDS ORDERED: Ondansetron 4 MG/2 ML SDV IV PRN (15:51)
[2025-08-13] MEDS: Ketorolac 30 MG/ML SDV IVPUSH SCH (17:59)
[2025-08-14 05:40] LABS: PLATELET COUNT,PLT 105.0 K/uL (130-375); RED BLOOD CELL COUNT 6.02 M/uL (4.14-5.76); WHITE BLOOD CELL COUNT,WBC 5.8 K/uL (3.2-11.0)
[2025-08-14 06:00] LABS: A/G RATIO 0.7 (1.2-2.2); ALANINE AMINOTRANSFERASE,ALT 392 U/L (12-78); ASPARTATE AMNIOTRANSFERASE,AST 316 U/L (15-37); BILIRUBIN TOTAL 1.8 mg/dL (0.2-1.0); BLOOD UREA NITROGEN,BUN 13 mg/dL (7-18); CARBON DIOXIDE,CO2 21 mmol/L (21-32); CHLORIDE,CL 98 mmol/L (100-108); CREATININE 1.0 mg/dL (0.8-1.3); EST CRCL DRUG DOSING (CG) 99.75 mL/min; ESTIMATED GFR 101 mL/min (>60); GLUCOSE RANDOM 123 mg/dL (74-106); POTASSIUM,K 3.9 mmol/L (3.6-5.2); PROTEIN TOTAL,TP 6.5 g/dL (6.4-8.2); SODIUM,NA 133 mmol/L (140-148)
[2025-08-14] MEDS: Sennosides/Docusate Sodium 50-8.6 MG Tab PO PRN (10:13)
[2025-08-14] MEDS: Gadoteridol 279.3 MG/ML 20 ML SDV IV SCH (16:11)
[2025-08-14] MEDS: metroNIDAZOLE/Normal Saline 500 MG in Premix Bag 1 BAG IV SCH (20:19)
[2025-08-15 05:58] LABS: PLATELET COUNT,PLT 84.0 K/uL (130-375); RED BLOOD CELL COUNT 4.91 M/uL (4.14-5.76); WHITE BLOOD CELL COUNT,WBC 5.0 K/uL (3.2-11.0)
[2025-08-15 06:22] LABS: A/G RATIO 0.6 (1.2-2.2); ALANINE AMINOTRANSFERASE,ALT 191 U/L (12-78); BILIRUBIN TOTAL 1.5 mg/dL (0.2-1.0); BLOOD UREA NITROGEN,BUN 20 mg/dL (7-18); CARBON DIOXIDE,CO2 23 mmol/L (21-32); CHLORIDE,CL 95 mmol/L (100-108); CREATININE 1.1 mg/dL (0.8-1.3); EST CRCL DRUG DOSING (CG) 90.68 mL/min; ESTIMATED GFR 90 mL/min (>60); GLUCOSE RANDOM 106 mg/dL (74-106); POTASSIUM,K 4.1 mmol/L (3.6-5.2); PROTEIN TOTAL,TP 6.5 g/dL (6.4-8.2); SODIUM,NA 130 mmol/L (140-148)
[2025-08-15 06:23] LABS: ASPARTATE AMNIOTRANSFERASE,AST 138 U/L (15-37)
[2025-08-16 06:07] LABS: PLATELET COUNT,PLT 105.0 K/uL (130-375); RED BLOOD CELL COUNT 3.65 M/uL (4.14-5.76); WHITE BLOOD CELL COUNT,WBC 4.3 K/uL (3.2-11.0)
[2025-08-16 06:29] LABS: A/G RATIO 0.6 (1.2-2.2); ALANINE AMINOTRANSFERASE,ALT 119 U/L (12-78); ASPARTATE AMNIOTRANSFERASE,AST 85 U/L (15-37); BILIRUBIN TOTAL 1.4 mg/dL (0.2-1.0); BLOOD UREA NITROGEN,BUN 11 mg/dL (7-18); CARBON DIOXIDE,CO2 23 mmol/L (21-32); CHLORIDE,CL 96 mmol/L (100-108); CREATININE 0.6 mg/dL (0.8-1.3); EST CRCL DRUG DOSING (CG) 166.25 mL/min; ESTIMATED GFR 129 mL/min (>60); GLUCOSE RANDOM 87 mg/dL (74-106); POTASSIUM,K 3.4 mmol/L (3.6-5.2); PROTEIN TOTAL,TP 5.9 g/dL (6.4-8.2); SODIUM,NA 130 mmol/L (140-148)
[2025-08-16] MEDS: Potassium Chloride 20 MEQ Tab.ER PO ONE (10:25)
[2025-08-17] MEDS: Potassium Chloride 20 MEQ Tab.ER PO ONE ×2 (07:29→13:52)
== END 2025-08-17 14:00 | disposition home or self-care (01) | DRG 440 ==
LOC: JP.ED 11:57 → JP.MS 15:12
PROVIDERS: ADMIT Internal Medicine; ATTEND Hospitalist
DX: K85.90 Acute pancreatitis without necrosis or infection, unspecified (principal); E87.6 Hypokalemia; K80.20 Calculus of gallbladder without cholecystitis without obstruction; R74.01 Elevation of levels of liver transaminase levels; F17.210 Nicotine dependence, cigarettes, uncomplicated; R01.1 Cardiac murmur, unspecified; K21.9 Gastro-esophageal reflux disease without esophagitis; E66.9 Obesity, unspecified; G89.29 Other chronic pain; Z79.1 Long term (current) use of non-steroidal anti-inflammatories (NSAID); Z79.2 Long term (current) use of antibiotics; Z79.899 Other long term (current) drug therapy; Z68.32 Body mass index [BMI] 32.0-32.9, adult; Z98.890 Other specified postprocedural states
CPT/HCPCS: 36415; 74176; 74183; 74183-26; 80053; 80305-QW; 80307; 81001; 83605; 83690; 83735; 84132; 85025; 85027; 86140; 87040; 93005; 93010; 96374; 99223; 99232; 99238; 99285; 99285-25; A9270-GY; A9579; J0696; J1171; J1836; J1885; J2270; J2470; J3480; J7030; J7120

== ENCOUNTER 2025-08-20 11:24 | Emergency (ER) | payer MEDICAID ==
[2025-08-20 13:22] LABS: APPEARANCE,URINE CLEAR (CLEAR); GLUCOSE,URINE NEGATIVE (NEGATIVE); OCCULT BLOOD,URINE NEGATIVE (NEGATIVE)
[2025-08-20 13:33] LABS: PLATELET COUNT,PLT 388 K/uL (130-375); RED BLOOD CELL COUNT 3.39 M/uL (4.14-5.76); WHITE BLOOD CELL COUNT,WBC 10.8 K/uL (3.2-11.0)
[2025-08-20 13:38] LABS: SQUAMOUS EPITHELIAL CELLS,UR NOT SEEN /HPF; UROTHELIAL CELLS,URINE NOT SEEN /HPF
[2025-08-20 13:53] LABS: BAND ABSOLUTE MAN 0.43 K/uL; BAND PERCENT MAN 4 % (5-11); LYMPHOCYTES ABSOLUTE MAN 0.86 K/uL (0.8-3.3); LYMPHOCYTES PERCENT MAN 8 % (24-44); MONOCYTES ABSOLUTE MAN 1.51 K/uL (0.20-0.90); MONOCYTES PERCENT MAN 14 % (2-6); NEUTROPHILS ABSOLUTE MAN 7.99 K/uL (1.0-7.6); SEG NEUTROPHILS PERCENT MAN 74 % (36-66)
[2025-08-20 13:55] LABS: A/G RATIO 0.6 (1.2-2.2); ALANINE AMINOTRANSFERASE,ALT 52 U/L (12-78); ASPARTATE AMNIOTRANSFERASE,AST 26 U/L (15-37); BILIRUBIN TOTAL 0.5 mg/dL (0.2-1.0); BLOOD UREA NITROGEN,BUN 4 mg/dL (7-18); CARBON DIOXIDE,CO2 31 mmol/L (21-32); CHLORIDE,CL 98 mmol/L (100-108); CREATININE 0.6 mg/dL (0.8-1.3); EST CRCL DRUG DOSING (CG) 166.25 mL/min; ESTIMATED GFR 129 mL/min (>60); GLUCOSE RANDOM 101 mg/dL (74-106); POTASSIUM,K 3.0 mmol/L (3.6-5.2); PROTEIN TOTAL,TP 6.4 g/dL (6.4-8.2); SODIUM,NA 136 mmol/L (140-148)
[2025-08-20] MEDS: Potassium Chloride 20 MEQ Tab.ER PO ONE (14:35)
== END 2025-08-20 14:40 | disposition home or self-care (01) ==
LOC: JP.ED 11:24
DX: K85.20 Alcohol induced acute pancreatitis without necrosis or infection (principal); E87.5 Hyperkalemia; E66.9 Obesity, unspecified; F17.200 Nicotine dependence, unspecified, uncomplicated; Z79.899 Other long term (current) drug therapy; Z68.32 Body mass index [BMI] 32.0-32.9, adult
CPT/HCPCS: 36415; 80053; 81001; 83690; 85025; 99284; A9270; 99283